=== PATIENT | male | born 1940 | race Caucasian/White ===

== ENCOUNTER 2021-12-19 09:25 | Inpatient (IN) ==
--- NOTE | 2021-12-19 09:32 | Emergency Department Note ---
Impression & Plan Weakness of extremity, Anemia, Hypocalcemia ED Provider Note NAME: VELMA ESTRADA AGE: 81 SEX: M : 1940 ARRIVES VIA: Ambulance INFORMANT: Patient, ED PROVIDER(S): Braulio Murcia MD Chief Complaint: HPI: I did receive a medical command call due to concern for wake-up stroke. The patient reportedly last known well at midnight when he went to bed but when he woke up around 8:00 the patient did have dense right-sided deficits and associated facial droop. EMS is reporting that patient does follow commands and is maintaining his airway but does appear to have facial droop does have difficulty with responding to extremity commands. No reported falls or trauma patient does take a baby aspirin but no other blood thinning medications. A code stroke was initiated while the patient was still in the field via EMS and was recommended to go right to CAT scan. I did speak with Dr. Robertson with [facility]. Will evaluate the patient. I did evaluate the patient myself and the patient does have diffuse bilateral upper and lower extremity weakness but is sensate throughout and his face arms chest abdomen and lower extremities. No prior history stroke or mini stroke. No recent falls or trauma per . The patient will occasionally drink a glass of wine but no recent alcohol use and no tobacco. Patient only complains of weakness but no sensory deficits. The patient denies any head neck back chest or abdominal pain. The patient does not complain of any extremity pain. No prior history of stroke or mini stroke. ROS: See HPI for pertinent positives and negatives. A total of 10 systems were reviewed and otherwise negative. Past medical history: See below Surgical history: See below Social history: See below Physical Exam: GENERAL: No apparent distress, wearing a mask EYE EXAM: Normal conjunctiva. PERRL, no anisocoria and EOM's grossly intact w/o pain. OROPHARYNX: Moist mucus membranes. Grossly normal dentition. NECK: Supple, trachea midline LUNGS: Clear to auscultation. Normal chest wall mechanics. HEART: NSR, no MRG. ABDOMEN: Abdomen soft, non-tender, normo-active bowel sounds, no masses, no rebound or guarding. BACK: No CVA TTP. SKIN: No rashes and no bruising. UPPER EXTREMITIES: Upper extremities are grossly normal. LOWER EXTREMITIES: Grossly normal, no edema. NEURO EXAM: Awake and alert x3, cranial nerves II through XII intact and no obvious facial droop normal speech, follows commands in the face, unable to move bilateral upper and lower extremities, sensory intact throughout face chest arms abdomen and extremities. Differential diagnoses: Infection, dehydration, metabolic abnormality, hypo/hyperglycemia, electrolyte disturbance, anemia, hypoxia, cardiac sources, intracerebral event, toxicologic, neurologic, as well as other pathologies. Course: Patient was seen and evaluated the bedside. Full history physical exam was performed. EKG interpreted by me Motion artifact noted junctional versus normal sinus, rate of 61, normal axis, no obvious ST elevations. Imaging Studies: See Below Cardiac monitoring: An order was placed for continuous cardiac monitoring. The monitor shows a rate of 62 with regular rhythm. MDM: Patient was seen due to concern for diffuse extremity weakness. The patient did have bladder completed along with CT head CT angiography head neck. CT head negative. The patient was evaluated by telestroke promptly. 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 No evidence of aneurysm rupture. I did discuss this with telestroke and they stated recommended MRI of the brain. Patient also did have an MRI of the C-spine ordered to r/o compression or other spinal cord pathology. Patient's blood work showed normal white count mild anemia with a hemoglobin of 12. Platelet count is unremarkable. Patient's kidney function is unremarkable with mild hyponatrem ia 133. Very mild hypocalcemia at 8.4. Urinalysis negative for blood or infection. COVID-negative given the patient's diffuse weakness I did speak the on-call hospitalist KANDIS Mckinnon and the patient was admitted by Dr. Denis pending results the patient's brain and C-spine MRI. I did convey the current findings and plan to the patient and patient's family at bedside who are in agreement plan of care. Upon reassessment prior to admission the patient did have improving motor function of his bilateral upper and lower extremities. Past Med/Surg History Medical History Chronic lower back pain Foot drop, right HTN (hypertension) Insomnia Surgical History History of back surgery History of knee replacement Family History Other GI bleed Social History Hx Alcohol Use: Yes Hx Substance Use: No Feels Safe at Home: Yes Allergies Allergies Allergy/AdvReac Type Severity Reaction Status Date / Time No Known Allergies Allergy Mild Unverified 12/19/21 13:24 Home Meds Home Medications Medication Instructions Recorded Confirmed Amitriptyline Hcl (Elavil Unknown #0 01/27/08 Dose) Amlodipine (Norvasc Unknown Dose) #0 01/27/08 Aspirin Enteric Coated (Ecotrin Or 81 mg PO DAILY #0 01/27/08 Generic *) Atorvastatin (Lipitor Unknown Dose) #0 01/27/08 amitriptyline 25 mg tablet 25 mg PO HS 12/19/21 12/19/21 amlodipine 5 mg-benazepril 40 mg 1 cap PO DAILY 12/19/21 12/19/21 capsule aspirin 81 mg capsule 81 mg PO DAILY 12/19/21 12/19/21 gabapentin 300 mg capsule 300 mg PO DIRECTED 12/19/21 12/19/21 levothyroxine 50 mcg tablet 50 mcg PO DAILY 12/19/21 12/19/21 Results & Data (ED) Vital Signs Vital Signs - 24 hr 12/19/21 09:35 12/19/21 09:43 12/19/21 09:49 Temperature 36.9 C Temperature Source Oral Pulse Rate 60 63 Pulse Rate [Left Apical] Pulse Rate from SpO2 Sensor 62 Pulse Rhythm Regular Pulse Rhythm [Left Apical] Pulse Strength [Left Apical] Respiratory Rate 12 14 Respiratory Effort / Characteristics Non-Labored Spontaneous Respiratory Depth Normal Respiratory Pattern Regular Blood Pressure 193/86 H Blood Pressure [Left Arm] Blood Pressure Mean 121 Blood Pressure Mean [Left Arm] Blood Pressure Position Lying Blood Pressure Position [Left Arm] Pulse Oximetry 96 96 95 Oxygen Delivery Method Room Air Room Air Oxygen Flow Rate 0 Sepsis Recent Fever Within 48 Hours No Sepsis New/Unexplained Change in Mental Status N/A Sepsis Action Taken by Nursing No Action Required 12/19/21 10:00 12/19/21 10:04 12/19/21 10:17 Temperature Temperature Source Pulse Rate 64 62 Pulse Rate [Left Apical] 62 Pulse Rate from SpO2 Sensor 66 62 Pulse Rhythm Pulse Rhythm [Left Apical] Regular Pulse Strength [Left Apical] Normal Respiratory Rate 17 16 19 Respiratory Effort / Characteristics Non-Labored Spontaneous Respiratory Depth Normal Respiratory Pattern Blood Pressure 190/96 H 178/89 H Blood Pressure [Left Arm] 190/96 H Blood Pressure Mean 127 118 Blood Pressure Mean [Left Arm] 127 Blood Pressure Position Blood Pressure Position [Left Arm] Lying Pulse Oximetry 96 97 97 Oxygen Delivery Method Room Air Oxygen Flow Rate Sepsis Recent Fever Within 48 Hours Sepsis New/Unexplained Change in Mental Status Sepsis Action Taken by Nursing 12/19/21 10:27 12/19/21 10:30 12/19/21 10:45 Temperature Temperature Source Pulse Rate 58 L 58 L 57 L Pulse Rate [Left Apical] Pulse Rate from SpO2 Sensor 58 L 59 L 56 L Pulse Rhythm Pulse Rhythm [Left Apical] Pulse Strength [Left Apical] Respiratory Rate 17 15 21 Respiratory Effort / Characteristics Respiratory Depth Respiratory Pattern Blood Pressure 180/87 H 166/88 H 176/79 H Blood Pressure [Left Arm] Blood Pressure Mean 118 114 111 Blood Pressure Mean [Left Arm] Blood Pressure Position Blood Pressure Position [Left Arm] Pulse Oximetry 96 97 96 Oxygen Delivery Method Oxygen Flow Rate Sepsis Recent Fever Within 48 Hours Sepsis New/Unexplained Change in Mental Status Sepsis Action Taken by Nursing 12/19/21 10:48 12/19/21 11:00 12/19/21 11:15 Temperature Temperature Source Pulse Rate 55 L 53 L Pulse Rate [Left Apical] 62 Pulse Rate from SpO2 Sensor 56 L 53 L Pulse Rhythm Pulse Rhythm [Left Apical] Pulse Strength [Left Apical] Respiratory Rate 16 18 21 Respiratory Effort / Characteristics Non-Labored Spontaneous Respiratory Depth Normal Respiratory Pattern Blood Pressure 168/79 H 140/68 Blood Pressure [Left Arm] 168/75 H Blood Pressure Mean 108 92 Blood Pressure Mean [Left Arm] 106 Blood Pressure Position Blood Pressure Position [Left Arm] Pulse Oximetry 98 97 97 Oxygen Delivery Method Room Air Oxygen Flow Rate Sepsis Recent Fever Within 48 Hours Sepsis New/Unexplained Change in Mental Status Sepsis Action Taken by Nursing 12/19/21 11:30 12/19/21 11:45 Temperature Temperature Source Pulse Rate 53 L 58 L Pulse Rate [Left Apical] Pulse Rate from SpO2 Sensor 53 L 58 L Pulse Rhythm Pulse Rhythm [Left Apical] Pulse Strength [Left Apical] Respiratory Rate 19 19 Respiratory Effort / Characteristics Respiratory Depth Respiratory Pattern Blood Pressure 146/69 H 173/82 H Blood Pressure [Left Arm] Blood Pressure Mean 94 112 Blood Pressure Mean [Left Arm] Blood Pressure Position Blood Pressure Position [Left Arm] Pulse Oximetry 96 95 Oxygen Delivery Method Room Air Room Air Oxygen Flow Rate Sepsis Recent Fever Within 48 Hours Sepsis New/Unexplained Change in Mental Status Sepsis Action Taken by [facility] Medications Current Medication List: was personally reviewed by me Laboratory Data Attestation: I reviewed the patient's lab results. Result diagrams: 12/19/21 09:43 12/19/21 09:43 Lab Results 12/19/21 12/19/21 12/19/21 Range/Units 09:27 09:43 09:43 WBC 8.82 (4.8-10.8) K/uL RBC 3.74 L (4.7-6.1) M/uL Hgb 12.3 L (14.0-18.0) g/dL Hct 34.8 L (42-52) % MCV 93.0 (80-100) fL MCH 32.9 (25-34) pg MCHC 35.3 (32-36) g/dL RDW Std Deviation 44.5 (36.4-46.3) fL RDW Coeff of Amparo 13.2 (11.5-14.5) % Plt Count 163 (130-400) K/uL MPV 9.2 (7.4-10.4) fL Immature Gran % (Auto) 0.3 % Neut % (Auto) 61.2 % Lymph % (Auto) 28.0 % Cedar % (Auto) 8.7 % Eos % (Auto) 1.6 % Baso % (Auto) 0.2 % Neut # (Auto) 5.39 (1.4-6.5) K/uL Lymph # (Auto) 2.47 (1.2-3.4) K/uL Cedar # (Auto) 0.77 H (0.11-0.59) K/uL Eos # (Auto) 0.14 (0-0.5) K/uL Baso # (Auto) 0.02 (0-0.2) K/uL Immature Gran # (Auto) 0.03 H (0.00-0.02) K/uL PT (9.0-12.0) Seconds INR (0.9-1.1) APTT (21.0-31.0) Seconds PTT Ratio Sodium (136-145) mmol/L Potassium (3.5-5.1) mmol/L Chloride (98-107) mmol/L Carbon Dioxide (21-32) mmol/L Anion Gap (3-11) BUN (6-23) mg/dl Creatinine (0.6-1.4) mg/dl Est Cr Clr Drug Dosing ml/min Est GFR ( Amer) ml/min Est GFR (Non-Af Amer) ml/min BUN/Creatinine Ratio (10-20) Glucose (70-99(Fasting)) mg/dl POC Glucose 120 H (70-99) mg/dl Calcium (8.5-10.1) mg/dl Magnesium (1.7-2.4) mg/dl Total Bilirubin (0.2-1.0) mg/dl AST (13-39) U/L ALT (7-52) U/L Alkaline Phosphatase (34-104) U/L Troponin I High Sens (0-20) pg/ml Total Protein (6.0-8.3) gm/dl Albumin (3.4-5.0) gm/dl Globulin (2.5-4.0) gm/dl Albumin/Globulin Ratio (0.9-2) Blood Type A Positive Antibody Screen NEGATIVE 12/19/21 12/19/21 Range/Units 09:43 09:43 WBC (4.8-10.8) K/uL RBC (4.7-6.1) M/uL Hgb (14.0-18.0) g/dL Hct (42-52) % MCV (80-100) fL MCH (25-34) pg MCHC (32-36) g/dL RDW Std Deviation (36.4-46.3) fL RDW Coeff of Amparo (11.5-14.5) % Plt Count (130-400) K/uL MPV (7.4-10.4) fL Immature Gran % (Auto) % Neut % (Auto) % Lymph % (Auto) % Cedar % (Auto) % Eos % (Auto) % Baso % (Auto) % Neut # (Auto) (1.4-6.5) K/uL Lymph # (Auto) (1.2-3.4) K/uL Cedar # (Auto) (0.11-0.59) K/uL Eos # (Auto) (0-0.5) K/uL Baso # (Auto) (0-0.2) K/uL Immature Gran # (Auto) (0.00-0.02) K/uL PT 10.9 (9.0-12.0) Seconds INR 1.0 (0.9-1.1) APTT 30.8 (21.0-31.0) Seconds PTT Ratio 1.1 Sodium 133 L (136-145) mmol/L Potassium 4.2 (3.5-5.1) mmol/L Chloride 104 (98-107) mmol/L Carbon Dioxide 25 (21-32) mmol/L Anion Gap 4 (3-11) BUN 23 (6-23) mg/dl Creatinine 1.03 (0.6-1.4) mg/dl Est Cr Clr Drug Dosing 70.3 ml/min Est GFR ( Amer) 79.1 ml/min Est GFR (Non-Af Amer) 68.3 ml/min BUN/Creatinine Ratio 22.3 H (10-20) Glucose 110 H (70-99(Fasting)) mg/dl POC Glucose (70-99) mg/dl Calcium 8.4 L (8.5-10.1) mg/dl Magnesium 1.8 (1.7-2.4) mg/dl Total Bilirubin 0.6 (0.2-1.0) mg/dl AST 8 L (13-39) U/L ALT 8 (7-52) U/L Alkaline Phosphatase 56 (34-104) U/L Troponin I High Sens 6.0 (0-20) pg/ml Total Protein 5.6 L (6.0-8.3) gm/dl Albumin 3.4 (3.4-5.0) gm/dl Globulin 2.2 L (2.5-4.0) gm/dl Albumin/Globulin Ratio 1.5 (0.9-2) Blood Type Antibody Screen Administered Medications Gabapentin (Gabapentin 300 Mg Cap) 300 mg PO DAILY@1500 BRADY Stop: 01/18/22 14:59 Last Admin: 12/19/21 16:16 Dose: 300 mg Documented by: [id number] Discontinued Medications Ioversol (Optiray 320 125ml) 119 ml IV ONCE ONE Stop: 12/19/21 09:42 Last Admin: 12/19/21 09:42 Dose: 119 ml Documented by: [id number] Imaging Data Radiologist's Impression: Head CT 12/19/21 09:15 CT head/brain wo con, CT angio neck with con, CT angio head w con CLINICAL HISTORY: 81 years-old Male with Stroke Like Symptoms. Acute strokelike symptoms TECHNIQUE: Multiple axial CT images of the head were obtained without contrast. CTA head and neck was also obtained following the intravenous administration of Optiray. All measurements were obtained according to NASCET criteria. 3-D coronal and sagittal MIPS were obtained from the axial data set. A dose lowering technique was utilized adhering to the principles of ALARA. COMPARISON: None. FINDINGS: CT HEAD: No acute intracranial hemorrhage, midline shift, intracranial mass, hydrocephalus, territorial ischemia or abnormal extra-axial collection. Age- related involutional changes. White matter hypodensities suggest chronic microvascular ischemic disease. Calcifications of the falx cerebri. The calvarium is intact. The mastoid air cells are generally clear. Minimal mucosal thickening of the paranasal sinuses. Unremarkable orbits and soft tissues. CTA HEAD AND NECK: Three-vessel morphology of the thoracic aortic arch. There is patency of the innominate and imaged subclavian arteries. The common and internal carotid arteries are widely patent. There is mild atherosclerosis of the distal internal carotid arteries without significant stenosis. There is a 3 mm saccular aneurysm noted involving the inferomedial aspect of the supraclinoid right internal carotid artery on image 104 of series 5. The middle and anterior cerebral ar teries are patent. Hypoplastic right A1 segment is likely developmental. Patent and codominant vertebral arteries. There is mild stenosis and tortuosity at the origin of the left vertebral artery. Mild stenosis of less than 50% involves the V2 segment of the right vertebral artery at the level of C4-C5 secondary to facet arthrosis and uncovertebral hypertrophy. The basilar and posterior cerebral arteries are patent. The cerebral venous sinuses are patent. Hypoplastic left transverse sinus. There is no abnormal intracranial enhancement. Subpleural bleb of the right lung apex. There is no pneumothorax. Hypodense 1.1 cm left-sided thyroid nodule. Multilevel degenerative changes of the cervical spine. IMPRESSION: 1. No acute intracranial abnormality. 2. 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 No evidence of aneurysm rupture. 3. Otherwise unremarkable CTA of the head and neck. ACT 112: Negative or not required by law. The above report was generated using voice recognition software. It may contain grammatical, syntax or spelling errors. Electronically signed by: Lux Arriola M.D. 12/19/2021 9:57 AM Head CTA 12/19/21 09:15 CT head/brain wo con, CT angio neck with con, CT angio head w con CLINICAL HISTORY: 81 years-old Male with Stroke Like Symptoms. Acute strokelike symptoms TECHNIQUE: Multiple axial CT images of the head were obtained without contrast. CTA head and neck was also obtained following the intravenous administration of Optiray. All measurements were obtained according to NASCET criteria. 3-D coronal and sagittal MIPS were obtained from the axial data set. A dose lowering technique was utilized adhering to the principles of ALARA. COMPARISON: None. FINDINGS: CT HEAD: No acute intracranial hemorrhage, midline shift, intracranial mass, hydrocephalus, territorial ischemia or abnormal extra-axial collection. Age- related involutional changes. White matter hypodensities suggest chronic microvascular ischemic disease. Calcifications of the falx cerebri. The calvarium is intact. The mastoid air cells are generally clear. Minimal mucosal thickening of the paranasal sinuses. Unremarkable orbits and soft tissues. CTA HEAD AND NECK: Three-vessel morphology of the thoracic aortic arch. There is patency of the innominate and imaged subclavian arteries. The common and internal carotid arteries are widely patent. There is mild atherosclerosis of the distal internal carotid arteries without significant stenosis. There is a 3 mm saccular aneurysm noted involving the inferomedial aspect of the supraclinoid right internal carotid artery on image 104 of series 5. The middle and anterior cerebral arteries are patent. Hypoplastic right A1 segment is likely developmental. Patent and codominant vertebral arteries. There is mild stenosis and tortuosity at the origin of the left vertebral artery. Mild stenosis of less than 50% involves the V2 segment of the right vertebral artery at the level of C4-C5 se condary to facet arthrosis and uncovertebral hypertrophy. The basilar and posterior cerebral arteries are patent. The cerebral venous sinuses are patent. Hypoplastic left transverse sinus. There is no abnormal intracranial enhancement. Subpleural bleb of the right lung apex. There is no pneumothorax. Hypodense 1.1 cm left-sided thyroid nodule. Multilevel degenerative changes of the cervical spine. IMPRESSION: 1. No acute intracranial abnormality. 2. 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 No evidence of aneurysm rupture. 3. Otherwise unremarkable CTA of the head and neck. ACT 112: Negative or not required by law. The above report was generated using voice recognition software. It may contain grammatical, syntax or spelling errors. Electronically signed by: Lux Arriola M.D. 12/19/2021 9:57 AM Neck CTA 12/19/21 09:15 CT head/brain wo con, CT angio neck with con, CT angio head w con CLINICAL HISTORY: 81 years-old Male with Stroke Like Symptoms. Acute strokelike symptoms TECHNIQUE: Multiple axial CT images of the head were obtained without contrast. CTA head and neck was also obtained following the intravenous administration of Optiray. All measurements were obtained according to NASCET criteria. 3-D coronal and sagittal MIPS were obtained from the axial data set. A dose lowering technique was utilized adhering to the principles of ALARA. COMPARISON: None. FINDINGS: CT HEAD: No acute intracranial hemorrhage, midline shift, intracranial mass, hydrocephalus, territorial ischemia or abnormal extra-axial collection. Age- related involutional changes. White matter hypodensities suggest chronic microvascular ischemic disease. Calcifications of the falx cerebri. The calvarium is intact. The mastoid air cells are generally clear. Minimal mucosal thickening of the paranasal sinuses. Unremarkable orbits and soft tissues. CTA HEAD AND NECK: Three-vessel morphology of the thoracic aortic arch. There is patency of the innominate and imaged subclavian arteries. The common and internal carotid arteries are widely patent. There is mild atherosclerosis of the distal internal carotid arteries without significant stenosis. There is a 3 mm saccular aneurysm noted involving the inferomedial aspect of the supraclinoid right internal carotid artery on image 104 of series 5. The middle and anterior cerebral arteries are patent. Hypoplastic right A1 segment is likely developmental. Patent and codominant vertebral arteries. There is mild stenosis and tortuosity at the origin of the left vertebral artery. Mild stenosis of less than 50% involves the V2 segment of the right vertebral artery at the level of C4-C5 secondary to facet arthrosis and uncovertebral hypertrophy. The basilar and posterior cerebral arteries are patent. The cerebral venous sinuses are patent. Hypoplastic left transverse sinus. There is no abnormal intracranial enhanceme nt. Subpleural bleb of the right lung apex. There is no pneumothorax. Hypodense 1.1 cm left-sided thyroid nodule. Multilevel degenerative changes of the cervical spine. IMPRESSION: 1. No acute intracranial abnormality. 2. 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 No evidence of aneurysm rupture. 3. Otherwise unremarkable CTA of the head and neck. ACT 112: Negative or not required by law. The above report was generated using voice recognition software. It may contain grammatical, syntax or spelling errors. Electronically signed by: Lux Arriola M.D. 12/19/2021 9:57 AM Brain MRI 12/19/21 10:22 MRI OF THE BRAIN WITHOUT IV CONTRAST CLINICAL HISTORY: Strokelike symptoms COMPARISON STUDY: CT of the brain dated 12/19/2021. TECHNIQUE: MRI of the brain was performed utilizing various T1 and T2-weighted sequences in the axial, sagittal, and coronal planes. IV contrast was not administered for this examination. FINDINGS: Brain parenchyma: There is age-related involutional change noting mild subcortical and periventricular microangiopathic disease. There is no hemorrhage or mass effect. There is no restricted diffusion to suggest acute ischemia. Reyna-white matter differentiation is preserved. No extra-axial fluid collection is seen. The cerebellar tonsils are normal in configuration. Ventricles, sulci, and cisterns: Prominent secondary to involutional change. Pituitary and sella: Unremarkable. Intracranial vasculature: Normal flow voids are maintained at the skull base. Orbits: The bony orbits are grossly intact. Orbital contents are normal in appearance. Sinuses and mastoids: There is trace mucosal thickening within the maxillary and ethmoid sinuses. The mastoid air cells are clear. Calvarium: Unremarkable. Cervical cord: Partially visualized cervical spinal cord is normal in morphology and signal intensity. IMPRESSION: No acute intracranial abnormality. ACT 112: Negative or not required by law. Electronically signed by: Demetrio Lorenzana M.D. 12/19/2021 1:22 PM Cervical Spine MRI 12/19/21 10:22 CLINICAL HISTORY: diffuse weakness TECHNIQUE: MRI of the cervical spine is performed utilizing various T1 and T2 sequences in the axial and sagittal planes. IV contrast was not administered for this examination. Comparison: None available at the time of this dictation. FINDINGS: The alignment is anatomical. C2-C3: Unremarkable. C3-C4: There is a large posterior disc bulge with severe canal stenosis, AP diameter 7 mm. Severe bilateral neuroforaminal stenosis is also seen. C4-C5: Large posterior disc bulge with ligamentum flavum hypertrophy, AP diameter 4.5 mm. There is bilateral severe neural foraminal stenosis. C5-C6: Small posterior disc bulge is seen with severe left and moderate right neural foraminal stenosis and moderate canal stenosis. C6-C7: Large posterior disc bulge is seen with moderate canal stenosis and moderate bilateral neuroforaminal stenosis. C7-T1: Unremarkable. The spinal ligaments are intact, without evidence of disruption or abnormal signal intensity. There is suggestion of spinal cord edema most prominent at the C4-C5 level. There is no evidence of an extradural, intradural, extramedullary or intramedullary lesion. Visualized soft tissues are normal. Visualized brain parenchyma is normal. 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 Findings are concerning for cord ischemia. ACT 112: Negative or not required by law. Electronically signed by: Alessandro Murillo M.D. 12/19/2021 1:45 PM Discharge Plan Visit Data Chief Complaint: Stroke Alert ED Provider: Braulio Murcia Discharge Problem: Weakness of extremity, Anemia, Hypocalcemia Patient Disposition: Admitted As Inpatient Discharge Instructions Interventions: ED Discharge Assessment Last Done: 12/19/21 14:35 Discharge Problem: Anemia Qualifiers: Anemia type: unspecified type Qualified Code(s): D64.9 - Anemia, unspecified
[2021-12-19] MEDS ORDERED: OPTIRAY 320 125ml IV ONE (09:41)
[2021-12-19 09:56] LABS: Basophils # (auto) 0.02 K/uL (0-0.2); Basophils % (auto) 0.2 %; Eosinophils # (auto) 0.14 K/uL (0-0.5); Eosinophils % (auto) 1.6 %; Hematocrit (blood only) 34.8 % (42-52); Hemoglobin 12.3 g/dL (14.0-18.0); Immature Granulocytes # (auto) 0.03 K/uL (0.00-0.02); Immature Granulocytes % (auto) 0.3 %; Lymphocytes # (auto) 2.47 K/uL (1.2-3.4); Mean Corpuscular Hemoglobin 32.9 pg (25-34); Mean Corpuscular Hgb Conc 35.3 g/dL (32-36); Mean Platelet Volume 9.2 fL (7.4-10.4); Monocytes # (auto) 0.77 K/uL (0.11-0.59); Monocytes % (auto) 8.7 %; Neutrophils # (auto) 5.39 K/uL (1.4-6.5); Neutrophils % (auto) 61.2 %; Platelet Count 163 K/uL (130-400); RDW Coefficient of Variation 13.2 % (11.5-14.5); RDW Standard Deviation 44.5 fL (36.4-46.3); Red Blood Count 3.74 M/uL (4.7-6.1); White Blood Count 8.82 K/uL (4.8-10.8)
--- NOTE | 2021-12-19 09:59 | CT Scan Report ---
CT head/brain wo con, CT angio neck with con, CT angio head w con CLINICAL HISTORY: 81 years-old Male with Stroke Like Symptoms. Acute strokelike symptoms TECHNIQUE: Multiple axial CT images of the head were obtained without contrast. CTA head and neck was also obtained following the intravenous administration of Optiray. All measurements were obtained ac cording to NASCET criteria. 3-D coronal and sagittal MIPS were obtained from the axial data set. A do se lowering technique was utilized adhering to the principles of ALARA. COMPARISON: None. FINDINGS: CT HEAD: No acute intracranial hemorrhage, midline shift, intracranial mass, hydrocephalus, territorial ischem ia or abnormal extra-axial collection. Age-related involutional changes. White matter hypodensities s uggest chronic microvascular ischemic disease. Calcifications of the falx cerebri. The calvarium is intact. The mastoid air cells are generally clear. Minimal mucosal thickening of th e paranasal sinuses. Unremarkable orbits and soft tissues. CTA HEAD AND NECK: Three-vessel morphology of the thoracic aortic arch. There is patency of the innominate and imaged jacobo bclavian arteries. The common and internal carotid arteries are widely patent. There is mild atherosc lerosis of the distal internal carotid arteries without significant stenosis. There is a 3 mm saccula r aneurysm noted involving the inferomedial aspect of the supraclinoid right internal carotid artery on image 104 of series 5. The middle and anterior cerebral arteries are patent. Hypoplastic right A1 segment is likely developmental. Patent and codominant vertebral arteries. There is mild stenosis and tortuosity at the origin of the left vertebral artery. Mild stenosis of less than 50% involves the V2 segment of the right vertebral artery at the level of C4-C5 secondary to facet arthrosis and uncovertebral hypertrophy. The basilar and posterior cerebral arteries are patent. The cerebral venous sinuses are patent. Hypoplastic left transverse sinus. There is no abnormal intracranial enhancement. Subpleural bleb of the right lung apex. There is no pneumothorax. Hypodense 1.1 cm left-sided thyroid nodule. Multilevel degenerative changes of the cervical spine. IMPRESSION: 1. No acute intracranial abnormality. 2. 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 No evidence of aneurysm rupture. 3. Otherwise unremarkable CTA of the head and neck. ACT 112: Negative or not required by law. The above report was generated using voice recognition software. It may contain grammatical, syntax o r spelling errors. Electronically signed by: Lux Arriola M.D. 12/19/2021 9:57 AM
[2021-12-19 10:09] LABS: Partial Thromboplastin Ratio 1.1; Partial Thromboplastin Time 30.8 Seconds (21.0-31.0); Prothrombin Time 10.9 Seconds (9.0-12.0)
[2021-12-19 10:15] LABS: Albumin Globulin Ratio 1.5 (0.9-2); Albumin Level 3.4 gm/dl (3.4-5.0); BUN Creatinine Ratio 22.3 (10-20); Bilirubin,Total 0.6 mg/dl (0.2-1.0); Calcium 8.4 mg/dl (8.5-10.1); Creatinine Clr Calc Pharmacy 70.3 ml/min; Est GFR (African American) 79.1 ml/min; Est GFR (Non-African American) 68.3 ml/min; Globulin 2.2 gm/dl (2.5-4.0); Magnesium 1.8 mg/dl (1.7-2.4); Potassium 4.2 mmol/L (3.5-5.1); Total Protein 5.6 gm/dl (6.0-8.3)
--- NOTE | 2021-12-19 12:05 | History & Physical Report ---
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 No evidence of aneurysm rupture -Unsure whether these symptoms are 2/2 CVA or possible Meds SE (isael amitriptyline) considering pt is having b/l symptoms -will get MRI brain, Echo and Neurology consult -NPO for now until bedside dysphagia test - will start pt on DAPT and Lipitor -A1C and Lipid panel AM -Lyme disease test today -PT/OT eval -pt initially had some urinary retention but able to void w/o any problem ---- will send UA HTN: -BP is elevated but pt did not take his home med -will continue home medication Insomnia and Chronic Lower back pain s/p back surgery: -for now will continue Amitriptyline and gabapentin Diet: NPO for now DVT PPx: Lovenox Code Status: Okay for CPR but no intubation Emergency Contact: : Laurence [phone] History of Present Illness Chief Complaint: extremity weakness Primary Care Provider: NO PCP Pt is a 81 y/o M with hx of HTN, Chronic R foot drop, Insomnia, L DDD s/p surgery, Chronic lower back pain came into the ER with acute onset of b/l arm and leg weakness with possible b/l facial droop (per symptoms started around 8 am today). Per and pt: pt was completely asymptomatic yesterday. Denied any recent URI symptoms, tick bite, rash, or GI symptoms. At bedside: per pt symptoms are improving. He is still having b/l extremity weakness. Denied any acute CP, SOB, RAMIREZ or Blurry vision. Denied any prior hx of CVA, OH, PAD or seizure. Pt and lives in [place], [place] Allergies Allergy/AdvReac Type Severity Reaction Status Date / Time No Known Allergies Allergy Unverified 12/19/21 11:49 Home Medications Medication Instructions Recorded Confirmed Type amitriptyline 25 mg tablet 25 mg PO HS 12/19/21 12/19/21 History amlodipine 5 mg-benazepril 40 mg 1 cap PO DAILY 12/19/21 12/19/21 History capsule aspirin 81 mg capsule 81 mg PO DAILY 12/19/21 12/19/21 History gabapentin 300 mg capsule 300 mg PO DIRECTED 12/19/21 12/19/21 History levothyroxine 50 mcg tablet 50 mcg PO DAILY 12/19/21 12/19/21 History Past Med/Surg History Medical History (Updated 12/19/21 @ 12:03 by Ingrid Huang MD) Chronic lower back pain Foot drop, right HTN (hypertension) Insomnia Surgical History (Updated 12/19/21 @ 12:00 by Ingrid Huang MD) History of back surgery History of knee replacement Family History (Updated 12/19/21 @ 12:00 by Ingrid Huang MD) Other GI bleed Social History Feels Safe at Home: Yes Review of Systems Review of Systems: At least 10 Review of systems were reviewed and all negative except as indicated in HPI Physical Exam Physical Exam: General:. NAD, well developed, well nourished, average body habitus HEENT:. Normocephalic and atraumatic, Normal Conjunctiva, EOMI, Sclera is non- icteric Lungs:. No signs of respiratory distress, CTA, no wheezing or crackles Heart:. Normal S1, S2, no murmur Abdominal:. ND, Soft, NT Neuro: CN II-XII intact, PERRLA, EOMI, no facial droop, pt had b/l UE and LE weakness: symmetrical, and only able to move the UE and LE against gravity slightly MSK:. No leg edema Psych:. AAOx3, normal affect Results & Data Results & Data ([facility]) Vital Signs (Past 12 Hours) Vital Signs Temp Pulse Pulse Resp BP BP Pulse Ox 12/19/21 10:48 62 16 168/75 H 98 12/19/21 10:04 62 16 190/96 H 97 12/19/21 09:49 95 12/19/21 09:35 36.9 C 60 12 193/86 H 96 Laboratory Results Short CBC 12/19/21 Range/Units 09:43 WBC 8.82 (4.8-10.8) K/uL Hgb 12.3 L (14.0-18.0) g/dL Hct 34.8 L (42-52) % Plt Count 163 (130-400) K/uL BMP 12/19/21 09:43 Sodium 133 L Potassium 4.2 Chloride 104 Carbon Dioxide 25 BUN 23 Creatinine 1.03 Glucose 110 H Calcium 8.4 L Liver Function 12/19/21 Range/Units 09:43 Total Bilirubin 0.6 (0.2-1.0) mg/dl AST 8 L (13-39) U/L ALT 8 (7-52) U/L Alkaline Phosphatase 56 (34-104) U/L Albumin 3.4 (3.4-5.0) gm/dl Diagnostic Findings Head CT 12/19/21 09:15 CT head/brain wo con, CT angio neck with con, CT angio head w con CLINICAL HISTORY: 81 years-old Male with Stroke Like Symptoms. Acute strokelike symptoms TECHNIQUE: Multiple axial CT images of the head were obtained without contrast. CTA head and neck was also obtained following the intravenous administration of Optiray. All measurements were obtained according to NASCET criteria. 3-D coronal and sagittal MIPS were obtained from the axial data set. A dose lowering technique was utilized adhering to the principles of ALARA. COMPARISON: None. FINDINGS: CT HEAD: No acute intracranial hemorrhage, midline shift, intracranial mass, hydrocephalus, territorial ischemia or abnormal extra-axial collection. Age- related involutional changes. White matter hypodensities suggest chronic microvascular ischemic disease. Calcifications of the falx cerebri. The calvarium is intact. The mastoid air cells are generally clear. Minimal mucosal thickening of the paranasal sinuses. Unremarkable orbits and soft tissues. CTA HEAD AND NECK: Three-vessel morphology of the thoracic aortic arch. There is patency of the innominate and imaged subclavian arteries. The common and internal carotid arteries are widely patent. There is mild atherosclerosis of the distal internal carotid arteries without significant stenosis. There is a 3 mm saccular aneurysm noted involving the inferomedial aspect of the supraclinoid right internal carotid artery on image 104 of series 5. The middle and anterior cerebral arteries are patent. Hypoplastic right A1 segment is likely developmental. Patent and codominant vertebral arteries. There is mild stenosis and tortuosity at the origin of the left vertebral artery. Mild stenosis of less than 50% involves the V2 segment of the right vertebral artery at the level of C4-C5 secondary to facet arthrosis and uncovertebral hypertrophy. The basilar and posterior cerebral arteries are patent. The cerebral venous sinuses are patent. Hypoplastic left transverse sinus. There is no abnormal intracranial enhancement. Subpleural bleb of the right lung apex. There is no pneumothorax. Hypodense 1.1 cm left-sided thyroid nodule. Multilevel degenerative changes of the cervical spine. IMPRESSION: 1. No acute intracranial abnormality. 2. 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 No evidence of aneurysm rupture. 3. Otherwise unremarkable CTA of the head and neck. ACT 112: Negative or not required by law. The above report was generated using voice recognition software. It may contain grammatical, syntax or spelling errors. Electronically signed by: Lux Arriola M.D. 12/19/2021 9:57 AM Head CTA 12/19/21 09:15 CT head/brain wo con, CT angio neck with con, CT angio head w con CLINICAL HISTORY: 81 years-old Male with Stroke Like Symptoms. Acute strokelike symptoms TECHNIQUE: Multiple axial CT images of the head were obtained without contrast. CTA head and neck was also obtained following the intravenous administration of Optiray. All measurements were obtained according to NASCET criteria. 3-D coronal and sagittal MIPS were obtained from the axial data set. A dose lowering technique was utilized adhering to the principles of ALARA. COMPARISON: None. FINDINGS: CT HEAD: No acute intracranial hemorrhage, midline shift, intracranial mass, hydrocephalus, territorial ischemia or abnormal extra-axial collection. Age- related involutional changes. White matter hypodensities suggest chronic microvascular ischemic disease. Calcifications of the falx cerebri. The calvarium is intact. The mastoid air cells are generally clear. Minimal mu cosal thickening of the paranasal sinuses. Unremarkable orbits and soft tissues. CTA HEAD AND NECK: Three-vessel morphology of the thoracic aortic arch. There is patency of the innominate and imaged subclavian arteries. The common and internal carotid arteries are widely patent. There is mild atherosclerosis of the distal internal carotid arteries without significant stenosis. There is a 3 mm saccular aneurysm noted involving the inferomedial aspect of the supraclinoid right internal carotid artery on image 104 of series 5. The middle and anterior cerebral arteries are patent. Hypoplastic right A1 segment is likely developmental. Patent and codominant vertebral arteries. There is mild stenosis and tortuosity at the origin of the left vertebral artery. Mild stenosis of less than 50% inv olves the V2 segment of the right vertebral artery at the level of C4-C5 secondary to facet arthrosis and uncovertebral hypertrophy. The basilar and posterior cerebral arteries are patent. The cerebral venous sinuses are patent. Hypoplastic left transverse sinus. There is no abnormal intracranial enhancement. Subpleural bleb of the right lung apex. There is no pneumothorax. Hypodense 1.1 cm left-sided thyroid nodule. Multilevel degenerative changes of the cervical spine. IMPRESSION: 1. No acute intracranial abnormality. 2. 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 No evidence of aneurysm rupture. 3. Otherwise unremarkable CTA of the head and neck. ACT 112: Negative or not required by law. The above report was generated using voice recognition software. It may contain grammatical, syntax or spelling errors. Electronically signed by: Lux Arriola M.D. 12/19/2021 9:57 AM Neck CTA 12/19/21 09:15 CT head/brain wo con, CT angio neck with con, CT angio head w con CLINICAL HISTORY: 81 years-old Male with Stroke Like Symptoms. Acute strokelike symptoms TECHNIQUE: Multiple axial CT images of the head were obtained without contrast. CTA head and neck was also obtained following the intravenous administration of Optiray. All measurements were obtained according to NASCET criteria. 3-D coronal and sagittal MIPS were obtained from the axial data set. A dose lowering technique was utilized adhering to the principles of ALARA. COMPARISON: None. FINDINGS: CT HEAD: No acute intracranial hemorrhage, midline shift, intracranial mass, hydrocephalus, territorial ischemia or abnormal extra-axial collection. Age- related involutional changes. White matter hypodensities suggest chronic microvascular ischemic disease. Calcifications of the falx cerebri. The calvarium is intact. The mastoid air cells are generally clear. Minimal mucosal thickening of the paranasal sinuses. Unremarkable orbits and soft tis sues. CTA HEAD AND NECK: Three-vessel morphology of the thoracic aortic arch. There is patency of the innominate and imaged subclavian arteries. The common and internal carotid arteries are widely patent. There is mild atherosclerosis of the distal internal carotid arteries without significant stenosis. There is a 3 mm saccular aneurysm noted involving the inferomedial aspect of the supraclinoid right internal carotid artery on image 104 of series 5. The middle and anterior cerebral arteries are patent. Hypoplastic right A1 segment is likely developmental. Patent and codominant vertebral arteries. There is mild stenosis and tortuosity at the origin of the left vertebral artery. Mild stenosis of less than 50% involves the V2 segment of the right vertebral artery at the level of C4-C5 se condary to facet arthrosis and uncovertebral hypertrophy. The basilar and posterior cerebral arteries are patent. The cerebral venous sinuses are patent. Hypoplastic left transverse sinus. There is no abnormal intracranial enhancement. Subpleural bleb of the right lung apex. There is no pneumothorax. Hypodense 1.1 cm left-sided thyroid nodule. Multilevel degenerative changes of the cervical spine.
--- NOTE | 2021-12-19 13:24 | Magnetic Resonance Report ---
MRI OF THE BRAIN WITHOUT IV CONTRAST CLINICAL HISTORY: Strokelike symptoms COMPARISON STUDY: CT of the brain dated 12/19/2021. TECHNIQUE: MRI of the brain was performed utilizing various T1 and T2-weighted sequences in the axial , sagittal, and coronal planes. IV contrast was not administered for this examination. FINDINGS: Brain parenchyma: There is age-related involutional change noting mild subcortical and periventricula r microangiopathic disease. There is no hemorrhage or mass effect. There is no restricted diffusion t o suggest acute ischemia. Reyna-white matter differentiation is preserved. No extra-axial fluid collec tion is seen. The cerebellar tonsils are normal in configuration. Ventricles, sulci, and cisterns: Prominent secondary to involutional change. Pituitary and sella: Unremarkable. Intracranial vasculature: Normal flow voids are maintained at the skull base. Orbits: The bony orbits are grossly intact. Orbital contents are normal in appearance. Sinuses and mastoids: There is trace mucosal thickening within the maxillary and ethmoid sinuses. The mastoid air cells are clear. Calvarium: Unremarkable. Cervical cord: Partially visualized cervical spinal cord is normal in morphology and signal intensity . IMPRESSION: No acute intracranial abnormality. ACT 112: Negative or not required by law. Electronically signed by: Demetrio Lorenzana M.D. 12/19/2021 1:22 PM
--- NOTE | 2021-12-19 13:47 | Magnetic Resonance Report ---
CLINICAL HISTORY: diffuse weakness TECHNIQUE: MRI of the cervical spine is performed utilizing various T1 and T2 sequences in the axial and sagittal planes. IV contrast was not administered for this examination. Comparison: None available at the time of this dictation. FINDINGS: The alignment is anatomical. C2-C3: Unremarkable. C3-C4: There is a large posterior disc bulge with severe canal stenosis, AP diameter 7 mm. Severe bertram ateral neuroforaminal stenosis is also seen. C4-C5: Large posterior disc bulge with ligamentum flavum hypertrophy, AP diameter 4.5 mm. There is bi lateral severe neural foraminal stenosis. C5-C6: Small posterior disc bulge is seen with severe left and moderate right neural foraminal stenos is and moderate canal stenosis. C6-C7: Large posterior disc bulge is seen with moderate canal stenosis and moderate bilateral neurofo raminal stenosis. C7-T1: Unremarkable. The spinal ligaments are intact, without evidence of disruption or abnormal signal intensity. There i s suggestion of spinal cord edema most prominent at the C4-C5 level. There is no evidence of an extra dural, intradural, extramedullary or intramedullary lesion. Visualized soft tissues are normal. Visua lized brain parenchyma is normal. 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 Findings are concerning for cord ischemia. ACT 112: Negative or not required by law. Electronically signed by: Alessandro Murillo M.D. 12/19/2021 1:45 PM
[2021-12-19 14:38] LABS: Appearance Urine Clear (Clear); Bilirubin Urine Negative (Negative); Blood Urine Negative (Negative); Color Urine Yellow; Glucose Urine UA Negative (Negative); Ketones Urine Negative (Negative); Leukocyte Esterase Urine Negative (Negative); Nitrite Urine Negative (Negative); Protein Urine Negative (Negative); Specific Gravity Urine 1.028 (1.000-1.030); Urobilinogen Urine Negative (Negative)
[2021-12-19] MEDS ORDERED: PHARMACIST DISCHARGE MED REC CONSULT PRN (15:19)
[2021-12-19] MEDS: GABAPENTIN 300 MG CAP PO SCH (16:16)
--- NOTE | 2021-12-19 16:17 | Neurology Consultation ---
Date of Consultation December 19, 2021 Assessment & Plan (1) Weakness of extremity: 1. bilateral UE/LE weakness, urinary retention- needs sphincter tone evaluation 2. MRI brain no acute findings- 3 mm saccular aneurysm will need follow up CTA in 6 months. 3. MRI c spine- extensive severe cord narrowing 4. urgent orthopedic consult needed 5. wait for orthopedic recs before PT/OT 6. fall precautions and keep NPO for now. hold aspirin 7. TTE if not already done (2) Cervical cord myelomalacia: 1. requesting orthopedic urgent consult Supervising Physician Co-Signing Physician Notes I have seen and discussed above patient with Dr Lilliana Kulkarni, neurology. See my dict note MD Quinton History of Present Illness Reason for Consultation: Diffuse extremity weakess x 1 day, urinary retenti Requesting Physician: Ingrid Huang MD Attending Physician: Ingrid Huang MD History of Present Illness Abe Caballero) is an 81 year old male with PMH- HTN, Chronic R foot drop, Insomnia, L DDD s/p surgery, Chronic lower back pain, peripheral neuropathy, very [place] presented to the [facility] 12/19/21 with acute onset of b/l arm and leg weakness with possible b/l facial droop (per symptoms started around 8 am today). He was complaining of neck pain but was no symptomatic yesterday. He is still having b/l extremity weakness but he no longer feels like he is paralysed. He is denying falls but his states he falls alot. they are here on vacation but actually live in [facility]. denies CP, SOB, abdominal pain, +bilateral UE/LE weakness, + bladder retension. Allergies Allergy/AdvReac Type Severity Reaction Status Date / Time No Known Allergies Allergy Mild Unverified 12/19/21 13:24 Home Medications Medication Instructions Recorded Confirmed Type Amitriptyline Hcl (Elavil Unknown #0 01/27/08 History Dose) Amlodipine (Norvasc Unknown Dose) #0 01/27/08 History Aspirin Enteric Coated (Ecotrin Or 81 mg PO DAILY #0 01/27/08 History Generic *) Atorvastatin (Lipitor Unknown Dose) #0 01/27/08 History amitriptyline 25 mg tablet 25 mg PO HS 12/19/21 12/19/21 History amlodipine 5 mg-benazepril 40 mg 1 cap PO DAILY 12/19/21 12/19/21 History capsule aspirin 81 mg capsule 81 mg PO DAILY 12/19/21 12/19/21 History gabapentin 300 mg capsule 300 mg PO DIRECTED 12/19/21 12/19/21 History levothyroxine 50 mcg tablet 50 mcg PO DAILY 12/19/21 12/19/21 History Patient History Medical History Chronic lower back pain Foot drop, right HTN (hypertension) Insomnia Surgical History History of back surgery History of knee replacement Family History Other GI bleed Social History Smoking Status: Former smoker Hx Alcohol Use: Yes Alcohol type: wine Hx Substance Use: No Preferred Language: Khmer Communication Ability: Effective K 9 Handler/ Deputy Required: No Beliefs That Will Affect Care: None Current Living Situation: Spouse Current Living Situation Comment: Assisted living, but not currently receiving services Other Information That Helps Us Care for You: No Feels Safe at Home: Yes Safety Concerns: Feels Safe At This Time Assistive Devices: Glasses, Hearing Aid - Bilateral and Walker Review of Systems Review of Systems: All systems reviewed & are unremarkable except as noted in HPI & below Physical Exam Physical Exam: Physical Exam: Constitutional: appearance nourished, healthy Ears, Nose, Mouth and Throat: mucous membranes moist, no injection and skin normal, eyes normal Cardiovascular: normal S-1 and S-2 and regular rate and rhythm Respiratory: clear to auscultation (CTA) and no rales, rhonchi or wheeze Musculoskeletal: no peripheral edema and decreased distal pulses Skin: no stigmata of neurocutaneous disease noted and normal and intact Eyes: extraocular muscles intact (EOMI) and pupils equal, round and reactive to light (PERRL) NEUROLOGIC EXAMINATION: Mental status: Alert and interactive Oriented to full date and location Oriented to person Speech fluent with no evidence of aphasia Cranial Nerves smile eye brow raise symmetric Reflexes: Deep tendon reflexes were decrease throughout, no ankle jerk worse on right than left, toes are neutral Sensory: loss of sensation right foot with vibration, cool, light touch, foot drop GT proprioception absent, left vibration, cool touch decreased but present Coordination: finger to nose intact heel to foot unable Gait/Stance: Posture lying in bed unable to check gait . Strength: hand teachers aide, intrinsics 4+/5 bilaterally, biceps triceps deltoids R/L 4+/5, hip flex bilaterally 4/5, plantar flex/ext R 0/5, L 4+/5 Results & Data ([facility]) Vital Signs (Past 12 Hours) Vital Signs Temp Pulse Pulse Pulse Resp BP BP 12/19/21 15:24 36.7 C 55 L 16 178/82 H 12/19/21 14:35 53 L 18 146/78 H 12/19/21 14:30 53 L 17 146/78 H 12/19/21 14:00 57 L 17 160/80 H 12/19/21 13:45 54 L 16 158/78 H 12/19/21 13:32 59 L 12 173/94 H 12/19/21 13:30 18 12/19/21 11:45 58 L 19 173/82 H 12/19/21 11:30 53 L 19 146/69 H 12/19/21 11:15 53 L 21 140/68 12/19/21 11:00 55 L 18 168/79 H 12/19/21 10:48 62 16 168/75 H 12/19/21 10:45 57 L 21 176/79 H 12/19/21 10:30 58 L 15 166/88 H 12/19/21 10:27 58 L 17 180/87 H 12/19/21 10:17 62 19 178/89 H 12/19/21 10:04 62 16 190/96 H 12/19/21 10:00 64 17 190/96 H 12/19/21 09:49 12/19/21 09:43 63 14 12/19/21 09:35 36.9 C 60 12 193/86 H Pulse Ox 12/19/21 15:24 96 12/19/21 14:35 95 12/19/21 14:30 12/19/21 14:00 95 12/19/21 13:45 96 12/19/21 13:32 97 12/19/21 13:30 12/19/21 11:45 95 12/19/21 11:30 96 12/19/21 11:15 97 12/19/21 11:00 97 12/19/21 10:48 98 12/19/21 10:45 96 12/19/21 10:30 97 12/19/21 10:27 96 12/19/21 10:17 97 12/19/21 10:04 97 12/19/21 10:00 96 12/19/21 09:49 95 12/19/21 09:43 96 12/19/21 09:35 96 Laboratory Results Abnormal lab results 12/19/21 12/19/21 12/19/21 Range/Units 09:27 09:43 09:43 RBC 3.74 L (4.7-6.1) M/uL Hgb 12.3 L (14.0-18.0) g/dL Hct 34.8 L (42-52) % Wise # (Auto) 0.77 H (0.11-0.59) K/uL Immature Gran # (Auto) 0.03 H (0.00-0.02) K/uL Sodium 133 L (136-145) mmol/L BUN/Creatinine Ratio 22.3 H (10-20) Glucose 110 H (70-99(Fasting)) mg/dl POC Glucose 120 H (70-99) mg/dl Calcium 8.4 L (8.5-10.1) mg/dl AST 8 L (13-39) U/L Total Protein 5.6 L (6.0-8.3) gm/dl Globulin 2.2 L (2.5-4.0) gm/dl Diagnostic Findings CT head/CTA head/neck-. No acute intracranial abnormality. 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 No evidence of aneurysm rup ture.. Otherwise unremarkable CTA of the head and neck. MRI brain-No acute intracranial abnormality. MRI c spine-Multilevel degenerative changes with severe canal and neural foraminal stenosis, most prominent at C4-C5 with spinal cord edema. Findings are concerning for cord ischemia. Upon further review, findings are more favored to represent chronic myelomalacia from severe disc disease rather than acute spinal cord ischemia.
--- NOTE | 2021-12-19 16:46 | Communication Note ---
Date of Service: December 19, 2021 Due to MRI C spine finding consulted stat Ortho -examined the pt at bedside: per pt his UE and LE weakness are improving -he also has significant lumbar spine stenosis per ---- needed surgery in the past but pt refused surgical intervention again when it was recommended by his surgeon recently -he was able to urinate -Did a digital rectal exam: normal rectal tone
--- NOTE | 2021-12-19 18:27 | Communication Note ---
Date of Service: December 19, 2021 Examined the pt at bedside: made him aware of the Decadron LUE: swelling near the cubital area surrounding a possible previous IV line --- no TTP or warmth to touch - likely from a infiltrated line -however will get Doppler Will do condom cath - pt does not want straight cath
[2021-12-19] MEDS: dexAMETHasone 8 MG in SYRINGE 0 ML IV SCH (20:02)
[2021-12-19] MEDS: AMITRIPTYLINE HCL 25 MG TAB PO SCH (20:59)
[2021-12-19] MEDS: GABAPENTIN 600 MG TAB PO SCH (21:00)
[2021-12-19] MEDS ORDERED: ENOXAPARIN INJ 40 MG/0.4 ML SYR SQ SCH (21:00)
--- NOTE | 2021-12-19 21:27 | Consultation Report ---
DATE OF SERVICE: 12/19/2021 Please see Lilliana Ulloa's note. We had seen and discussed the patient. As well, we have both communicated to Dr. Huang. HISTORY OF PRESENT ILLNESS: The patient is an 81-year-old male who woke up suddenly this morning and indicated he could not move his extremities. His indicates he spoke in a soft voice and perhaps had bifacial weakness. There was no headache. There was no double vision, facial anesthesia, or difficulty with swallowing. The patient denied any new sensory symptoms. He has a chronic right foot drop, which they are unsure whether it is related to his known peripheral neuropathy or related to lumbar issues. There were no new sensory symptoms. There is no neck pain, no Lhermitte's phenomenon and no back pain. He has been otherwise well. He has fallen about 10 times over the last year and ambulates with a walker. About 6 weeks ago, he and his had a flu-like illness, but tested negative for COVID. He has been gradually improving in terms of some mild generalized weakness since then. He denies any difficulty with bowel or bladder. He indicates he is having difficulty emptying his bladder at our facility due to not being able to stand up. He has no prior history of the same. He has no history of stroke. No history of cancer. I have reviewed his MRI of the brain, which appears noncontributory and his MRI of the cervical spine. I have shown those images to the patient and his family. There is severe cord compression at C4-C5 with the AP diameter of the central canal being 4.5 mm. There is encephalomalacia in the cord. PHYSICAL EXAMINATION: On examination, the patient is awake, alert, and oriented x3. On general examination, there were no carotid bruits, no heart murmurs. Heart is regular rate and rhythm. There is no spinal tenderness. Pupils are equal, round, and reactive to light. Optic nerves are difficult to visualize. There are normal arriaza, motility, facial sensation, facial symmetry. Tongue is midline. There is no tongue weakness. No nasality of speech. No fatigability of eye closure. No neck flexor/extensor fatigue or weakness. Gross inspection of the musculature reveals some atrophy below the level of the knees with a right foot drop apparently chronic due to atrophy. Upper extremity strength is about 3+ to 4 with normal tone. Tone may be mildly increased in the lowers. Lower extremity strength is about 3+ as well, although functionally it is somewhat better. This is with the exception of the right TA, which is less than antigravity. The peroneus longus and tibialis posterior are similarly weak and the gastroc is probably closer to 4. His reflexes are brisk at the triceps. There is no increase in pectoralis major reflex. There is no increase in superficial or deep abdominal reflex. Knee jerks are brisk. There is a right crossed adductor. Ankle jerks are absent. There is no clonus and toes are downgoing. There is decreased light touch and temperature in the right arm and right leg. There is decreased vibration in the right leg. There is approximately a knee level to temperature. No spinal level is noted. Buttock sensation to light touch is intact. IMPRESSION AND PLAN: This patient gives a history of sudden quadriparesis without pain or new sensory symptoms on a background of 12 months of increased falls. gives a history of perhaps bifacial weakness or change in speech, but that is somewhat unclear to this examiner. For the most part, the patient's deficit is one of quadriparesis with scattered brisk reflexes. His sensory examination does not entirely fit a typical distribution of a cord lesion. I believe the patient is symptomatic for cord compression. I cannot explain why he is somewhat improved since this morning or why his perception is that the symptoms came on suddenly. Recommend urgent orthopedic spine consultation. I have communicated that with Dr. Huang. Recommend intravenous steroids. Blood sugar will need to be monitored carefully. I spoke to the patient's family in some detail talking about the need for a fairly urgent evaluation. He certainly can be urgently transferred to a tertiary care center if that is their desire. I think an acute process such as an acute inflammatory demyelinating polyneuropathy would be unusual given the relative sudden onset, some improvement, lack of new sensory symptoms such as paresthesias, lack of back pain. Similarly, doubt an acute myasthenic type picture given the patient's improvement as the day goes on. Similarly, I see no distribution suggestive that this is a myopathic process. We will follow with you. Job ID: [id number] [facility]
--- NOTE | 2021-12-19 21:28 | Progress Notes ---
ADDENDUM CTA of the head suggests a 3 mm saccular aneurysm of the supraclinoid segment of the right ICA. No e vidence of aneurysm rupture. This aneurysm appears to be asymptomatic. Recommend vascular neurosurg mike consultation on an elective basis. Job ID: [id number]
[2021-12-20] MEDS: dexAMETHasone 8 MG in SYRINGE 0 ML IV SCH ×2 (03:59→13:15)
[2021-12-20] MEDS: LEVOTHYROXINE SODIUM 50 MCG TABLET PO SCH (06:01)
--- NOTE | 2021-12-20 06:36 | Electrocardiogram Report ---
Test Reason : Blood Pressure : / mmHG Vent. Rate : 061 BPM Atrial Rate : 061 BPM P-R Int : 216 ms QRS Dur : 088 ms QT Int : 412 ms P-R-T Axes : 000 -42 018 degrees QTc Int : 414 ms Poor data quality, interpretation may be adversely affected Possible Sinus rhythm with 1st degree A-V block Left axis deviation Inferior infarct , age undetermined Incomplete right bundle branch block Abnormal ECG No previous ECGs available Confirmed by Rony Allen ([id number]) on 12/20/2021 6:35:43 AM Referred By: REFERRED SELF Confirmed By:Rony Allen
--- NOTE | 2021-12-20 06:58 | Ultrasound Report ---
ULTRASOUND LEFT UPPER EXTREMITY VENOUS CLINICAL HISTORY: Left arm swelling. COMPARISON STUDY: No priors. TECHNIQUE: Real-time, grayscale, and color Doppler sonography of the deep veins of the left upper ext remity is performed. Compression and augmentation were utilized. FINDINGS: There is no sonographic evidence of deep venous thrombosis identified in the left upper ext remity. The left internal jugular, axillary, and brachial veins are patent and normally compressible. Normal venous waveforms and augmentation are seen within the left subclavian vein. The cephalic and basilic veins are clear. The visualized radial and ulnar veins are patent. Soft tissue edema is noted . IMPRESSION: There is no sonographic evidence of deep venous thrombosis identified in the left upper e xtremity. ACT 112: Negative or not required by law. Electronically signed by: Demetrio Lorenzana M.D. 12/20/2021 6:57 AM
[2021-12-20 07:31] LABS: Hemoglobin 14.7 g/dL (14.0-18.0); Immature Granulocytes # (auto) 0.03 K/uL (0.00-0.02); Immature Granulocytes % (auto) 0.3 %; Lymphocytes # (auto) 1.21 K/uL (1.2-3.4); Lymphocytes % (auto) 13.2 %; Mean Corpuscular Hgb Conc 35.9 g/dL (32-36); Mean Corpuscular Volume 92.1 fL (80-100); Mean Platelet Volume 9.5 fL (7.4-10.4); Monocytes # (auto) 0.09 K/uL (0.11-0.59); Neutrophils # (auto) 7.84 K/uL (1.4-6.5); Neutrophils % (auto) 85.5 %; Platelet Count 189 K/uL (130-400); RDW Coefficient of Variation 13.1 % (11.5-14.5); RDW Standard Deviation 43.7 fL (36.4-46.3); Red Blood Count 4.45 M/uL (4.7-6.1); White Blood Count 9.17 K/uL (4.8-10.8)
[2021-12-20 07:49] LABS: BUN Creatinine Ratio 19.7 (10-20); Calcium 9.5 mg/dl (8.5-10.1); Chol HDL Ratio 4.7 (0-5); Creatinine Clr Calc Pharmacy 61.9 ml/min; Est GFR (African American) 67.8 ml/min; Est GFR (Non-African American) 58.5 ml/min; Potassium 4.4 mmol/L (3.5-5.1)
--- NOTE | 2021-12-20 08:10 | Orthopedic Consultation ---
Date of Consultation December 20, 2021 Assessment & Plan (1) Cervical cord myelomalacia: Assessment cervical spinal stenosis with myelopathy. Plan had discussion with this patient this morning regarding his imaging and clinical presentation. I recommend urgent anterior cervical decompression and fusion most likely requiring a C4 corpectomy for adequate canal decompression and stabilization. He is from the [facility] and is requesting transfer to the hospital closer to his home most [facility]. This of course reasonable. I did state that if he is unable to be transferred I would not be comfortable waiting a prolonged period of time before addressing this surgically. Patient understands and agrees. I have made him n.p.o. History of Present Illness Reason for Consultation: Upper and lower extremity weakness Attending Physician: Edward Brown MD History of Present Illness This is an 81-year-old male that states that he woke up yesterday morning with the perception of paralysis involving his upper and lower extremities. He was taken to emergency room. His symptoms steadily improved throughout the day as he underwent an extensive work-up to rule out stroke. MRI of the cervical spine was obtained demonstrating evidence of severe spinal stenosis and myelomalacia. This morning he states he has return to function to his arms and legs. States he was able to stand earlier this morning with the assistance of his nurses. He was unable to urinate and subsequently required catheterization. He denies gross numbness and tingling in lower extremities at this time and feels his strength is improving. Allergies Allergy/AdvReac Type Severity Reaction Status Date / Time No Known Allergies Allergy Mild Unverified 12/19/21 13:24 Home Medications Medication Instructions Recorded Confirmed Type Amitriptyline Hcl (Elavil Unknown #0 01/27/08 History Dose) Amlodipine (Norvasc Unknown Dose) #0 01/27/08 History Aspirin Enteric Coated (Ecotrin Or 81 mg PO DAILY #0 01/27/08 History Generic *) Atorvastatin (Lipitor Unknown Dose) #0 01/27/08 History amitriptyline 25 mg tablet 25 mg PO HS 12/19/21 12/19/21 History amlodipine 5 mg-benazepril 40 mg 1 cap PO DAILY 12/19/21 12/19/21 History capsule aspirin 81 mg capsule 81 mg PO DAILY 12/19/21 12/19/21 History gabapentin 300 mg capsule 300 mg PO DIRECTED 12/19/21 12/19/21 History levothyroxine 50 mcg tablet 50 mcg PO DAILY 12/19/21 12/19/21 History Patient History Medical History Chronic lower back pain Foot drop, right HTN (hypertension) Insomnia Surgical History History of back surgery History of knee replacement Family History Other GI bleed Social History Smoking Status: Former smoker Hx Alcohol Use: Yes Alcohol type: wine Hx Substance Use: No Preferred Language: Lao Communication Ability: Effective Hvac Sales Engineer Required: No Beliefs That Will Affect Care: None Current Living Situation: Spouse Current Living Situation Comment: Assisted living, but not currently receiving services Other Information That Helps Us Care for You: No Feels Safe at Home: Yes Safety Concerns: Feels Safe At This Time Assistive Devices: Glasses, Hearing Aid - Bilateral and Walker Physical Exam Physical Exam: On exam he is supine in bed. He demonstrates reasonable for +5 bilateral biceps triceps grasp. He is a positive Chun sign bilaterally. He has reasonable plantar flexion dorsiflexion. I have not got him out of bed at this time yet. Results & Data ([facility]) Vital Signs (Past 12 Hours) Vital Signs Temp Pulse Pulse Resp BP Pulse Ox 12/20/21 07:22 90 12/20/21 03:07 36.6 C 58 L 18 126/74 95 12/20/21 00:00 64 12/19/21 23:42 36.6 C 60 18 124/71 93
[2021-12-20] MEDS ORDERED: ACETAMINOPHEN 325 MG TAB PO PRN (08:19)
[2021-12-20] MEDS ORDERED: CLOPIDOGREL BISULFATE 75 MG TAB PO SCH (09:00)
[2021-12-20] MEDS ORDERED: ASPIRIN 81 MG ECTAB PO SCH (09:00)
[2021-12-20] MEDS: amLODIPine BESYLATE 5 MG TAB PO SCH (09:12)
[2021-12-20 09:13] LABS: Estimated Average Glucose 117 mg/dl; Hemoglobin A1C 5.7 % (4.5-5.6)
[2021-12-20] MEDS: ENALAPRIL MALEATE 10 MG TAB PO SCH (09:13)
[2021-12-20] MEDS: ATORVASTATIN 40 MG TAB PO SCH (09:13)
[2021-12-20] MEDS: GABAPENTIN 600 MG TAB PO SCH ×2 (09:13→21:23)
[2021-12-20] MEDS ORDERED: PERFLUTREN LIPID MICROSPHERE (DEFINITY) IV ONE (10:38)
[2021-12-20 11:49] LABS: Lyme Ab IgG w/WB Rflx Negative (Negative); Lyme Ab IgM w/WB Rflx Negative (Negative)
--- NOTE | 2021-12-20 14:36 | Hospitalist Progress Note ---
Date of Service December 20, 2021 Assessment & Plan (1) HTN (hypertension): (2) Insomnia: (3) Chronic lower back pain: (4) Weakness of extremity: Plan: 81year old male who presented to the ED 12/19 with acute onset bilateral arm and leg weakness, symptoms started around 8 am on 12/19. Stroke work up was negative but showed severe canal and neural foraminal stenosis, most prominent at C4-C5 with spinal cord edema concerning for cord ischemia. He was started on decadron with improvement. He was seen by orthopedic surgery and recommended urgent ADCF. He is from [facility] but was here on vacation. Cervical spine MRI 12/19- Multilevel degenerative changes with severe canal and neural foraminal stenosis, most prominent at C4-C5 with spinal cord edema. Findings are concerning for cord ischemia. 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 CT head and MRI brain with no acute abnormality CTA head/neck 1. No acute intracranial abnormality. 2. 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 No evidence of aneurysm rupture. 3. Otherwise unremarkable CTA of the head and neck. 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 Urinary retention and now on farfan. - Seen by Dr Tiwari and recommended urgent ADCF most likely requiring C4 corpectomy for adequate canal decompression adn stabilization- however patient and family opted to be transferred to [facility] as they are from [place] and his daughter Mariela works there at [employer]. I spoke with neurosurgeon Dr Isaias Valdovinos from [facility] who accepted the patient for transfer however he recommended that the surgery not be delayed and rather done here as there is no bed available and there are multiple emergency cases already scheduled- so the surgery will not be done for the next 4-5 days there even if transferred. The CT and MRI images were sent to [facility] system and were reviewed by Dr Valdovinos and I was told he would like to speak to Dr Tiwari. I have texted and paged Dr Tiwari to make him aware- awaiting response. patient is made npo per orthopedics, will start gentle ivf. No need for stroke protocol. - Further management per surgical team Acute urinary retention- from above- continue farfan. HTN: continue vasotec Hypothyroidism- on synthroid Insomnia and Chronic Lower back pain s/p back surgery: Continue Amitriptyline and gabapentin DVT PPx:sc Lovenox Dispo: needs urgent ADCF per ortho- here vs transfer to [facility] Updated daughter Mariela over the phone multiple times today. Admission and Anticipated Discharge Date Admission Date: December 19, 2021 Subjective He feels improved. His strength is back. He was unable to void and was placed on farfan this morning. He was seen by Dr Tiwari this morning who recommended urgent surgery but he wanted to get the surgery done at [facility] as he is from the [facility] and his daughter works there at [employer]. He was wondering if he could eat as the plan for surgery is uncertain. Physical Exam Physical Exam: General: Lying comfortably in bed, not in distress, on room air HEENT: EOMI, ZACKARY, MMM Chest: Clear breath sounds bilaterally, no wheezes or crackles CVS: Regular rate and rhythm, normal heart sounds, no murmur Abdomen: Soft, non tender, not distended, normal bowel sounds Neuro: Awake, alert, oriented, conversing well, non focal. Strength 5/5 on all extremities, sensation intact Extremities: No cyanosis, clubbing or edema Farfan with donavan urine Results & Data Results & Data ([facility]) Vital Signs (Past 12 Hours) Vital Signs Temp Pulse Pulse Pulse Resp BP Pulse Ox 12/20/21 13:27 36.6 C 75 14 148/88 H 95 12/20/21 10:00 36.5 C 81 14 157/97 H 94 12/20/21 08:00 36.5 C 80 16 178/100 H 96 12/20/21 07:22 90 12/20/21 03:07 36.6 C 58 L 18 126/74 95 Laboratory Results Short CBC 12/20/21 Range/Units 07:08 WBC 9.17 (4.8-10.8) K/uL Hgb 14.7 (14.0-18.0) g/dL Hct 41.0 L (42-52) % Plt Count 189 (130-400) K/uL BMP 12/20/21 07:08 Sodium 133 L Potassium 4.4 Chloride 100 Carbon Dioxide 24 BUN 23 Creatinine 1.17 Glucose 171 H Calcium 9.5 Urine 12/19/21 Range/Units 13:30 Urine Color Yellow Urine Appearance Clear (Clear) Urine pH 7.0 (4.5-7.5) Ur Specific [place] 1.028 (1.000-1.030) Urine Protein Negative (Negative) Urine Glucose (UA) Negative (Negative) Medications Administered Current Inpatient Medications Acetaminophen (Acetaminophen 325 Mg Tab) 650 mg PO Q4H PRN PRN Reason: pain Stop: 01/19/22 08:18 Amitriptyline HCl (Amitriptyline Hcl 25 Mg Tab) 25 mg PO HS BRADY Stop: 01/18/22 20:59 Last Admin: 12/19/21 20:59 Dose: 25 mg Documented by: Amlodipine Besylate (Amlodipine Besylate 5 Mg Tab) 5 mg PO DAILY [facility] Stop: 01/19/22 08:59 Last Admin: 12/20/21 09:12 Dose: 5 mg Documented by: Aspirin (Aspirin 81 Mg Ectab) 81 mg PO DAILY BRADY Stop: 01/19/22 08:59 Last Admin: 12/20/21 09:13 Dose: 81 mg Documented by: Atorvastatin Calcium (Atorvastatin 40 Mg Tab) 40 mg PO QAM [facility] Stop: 01/19/22 08:59 Last Admin: 12/20/21 09:13 Dose: 40 mg Documented by: Clopidogrel Bisulfate (Clopidogrel Bisulfate 75 Mg Tab) 75 mg PO QAM [facility] Stop: 01/19/22 08:59 Last Admin: 12/20/21 09:13 Dose: 75 mg Documented by: Enalapril Maleate (Enalapril Maleate 10 Mg Tab) 40 mg PO DAILY [facility] Stop: 01/19/22 08:59 Last Admin: 12/20/21 09:13 Dose: 40 mg Documented by: Enoxaparin Sodium (Enoxaparin Inj 40 Mg/0.4 Ml Syr) 40 mg SQ Q24H BRADY Stop: 01/18/22 20:59 Last Admin: 12/19/21 21:00 Dose: 40 mg Documented by: Gabapentin (Gabapentin 600 Mg Tab) 600 mg PO BID BRADY Stop: 01/18/22 20:59 Last Admin: 12/20/21 09:13 Dose: 600 mg Documented by: Gabapentin (Gabapentin 300 Mg Cap) 300 mg PO DAILY@1500 [facility] Stop: 01/18/22 14:59 Last Admin: 12/19/21 16:16 Dose: 300 mg Documented by: Dexamethasone 8 mg/ Syringe 2 mls @ 1 mls/min IV Q8H [facility] Stop: 12/20/21 19:59 Last Admin: 12/20/21 13:15 Dose: 1 mls/min Documented by: Sodium Chloride (Nss 1000ml) 1,000 mls @ 80 mls/hr IV .[id number] [facility] Stop: 01/19/22 14:44 Levothyroxine Sodium (Levothyroxine Sodium 50 Mcg Tablet) 50 mcg PO DAILYBB [facility] Stop: 01/19/22 06:29 Last Admin: 12/20/21 06:01 Dose: 50 mcg Documented by: Miscellaneous Information (Pharmacist Discharge Med Rec Consult) 1 ea N/A UD PRN PRN Reason: Consult Stop: 01/18/22 15:18
[2021-12-20] MEDS: GABAPENTIN 300 MG CAP PO SCH (15:30)
[2021-12-20] MEDS: SODIUM CHLORIDE 0.9% 1000ML 1,000 ML IV SCH (15:30)
--- NOTE | 2021-12-20 15:51 | Neurology Progress Note ---
Date of Service December 20, 2021 Assessment & Plan (1) Weakness of extremity: Plan: 1. bilateral UE/LE weakness, urinary retention- needs sphincter tone evaluation 2. MRI brain no acute findings- 3 mm saccular aneurysm will need follow up CTA in 6 months. 3. MRI c spine- extensive severe cord narrowing 4. urgent orthopedic consult needed 5. orthopedic planning for surgery 6. fall precautions and keep NPO for now. hold aspirin 7. TTE 60-65% EF no ASD 8. will need physical therapy after discharge- the would like to go back to the [facility] Admission and Anticipated Discharge Date Admission Date: December 19, 2021 Supervising Physician Co-Signing Physician Notes I have seen and discussed above patient with Dr Lilliana Kulkarni, neurology patient seen and examined. He feels improved today. No new neurologic symptoms other than some urinary retention. On exam he is awake and alert speech and language are normal upper extremity strength about 4 right lower proximally 3+ distally for with the exception of right foot drop. Brisk knee jerks with the bilateral crossed adductors absent ankle jerks downgoing toes no clonus Compressive cervical myelopathy patient is mildly improved on Decadron. Patient is to undergo surgery tomorrow. 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 We will sign off at this point. Lilliana Kulkarni MD Martín Caballero) is an 81 year old male with PMH- HTN, Chronic R foot drop, Insomnia, L DDD s/p surgery, Chronic lower back pain, peripheral neuropathy, ve ry [place] presented to the [facility] 12/19/21 with acute onset of b/l arm and leg weakness with possible b/l facial droop (per symptoms started around 8 am today). He was complaining of neck pain but was no symptomatic yesterday. He is still having b/l extremity weakness but he no longer feels like he is paralysed. He is denying falls but his states he falls alot. they are here on vacation but actually live in [facility]. denies CP, SOB, abdominal pain, +bilateral UE/LE weakness, + bladder retention. His daughters are in the room and are anxious to speak to Dr Tiwari. He has decided to stay and have surgery. He feels he is improved from yesterday after having 3 rounds of steroids. Review of Systems Review of Systems: All systems reviewed & are unremarkable except as noted in HPI & below Physical Exam Physical Exam: Physical Exam: Constitutional: appearance over nourished, healthy Ears, Nose, Mouth and Throat: mucous membranes moist, no injection and skin normal, eyes normal Cardiovascular: normal S-1 and S-2 and regular rate and rhythm Respiratory: clear to auscultation (CTA) and no rales, ronchi or wheeze Musculoskeletal: no peripheral edema and good distal pulses, edema in left upper arm Skin: no stigmata of neurocutaneous disease noted and normal and intact Eyes: extraocular muscles intact (EOMI) and pupils equal, round and reactive to light (PERRL) NEUROLOGIC EXAMINATION: Mental status: Alert and interactive Oriented to full date and location Oriented to person Speech fluent with no evidence of aphasia Cranial Nerves smile eye brow raise symmetric Reflexes: Deep tendon reflexes decreased throughout right foot drop no clonus, toes are neutral Sensory: decreased to vibration cool touch right intact at GT on left GT proprioception absent Coordination: able to raise both arms in the air Gait/Stance: Posture lying in bed Motor: Negative for pronator drift of out stretched arms with eyes closed. Strength: hand regional facilities specialist biceps triceps 4+/5 Results & Data ([facility]) Vital Signs (Past 12 Hours) Vital Signs Temp Pulse Pulse Resp BP BP Pulse Ox 12/20/21 14:38 36.5 C 86 20 147/84 H 94 12/20/21 13:27 36.6 C 75 14 148/88 H 95 12/20/21 10:00 36.5 C 81 14 157/97 H 94 12/20/21 08:00 36.5 C 80 16 178/100 H 96 12/20/21 07:22 90 Laboratory Results Abnormal lab results 12/20/21 12/20/21 12/20/21 Range/Units 07:08 07:08 07:08 RBC 4.45 L (4.7-6.1) M/uL Hct 41.0 L (42-52) % Neut # (Auto) 7.84 H (1.4-6.5) K/uL [place] # (Auto) 0.09 L (0.11-0.59) K/uL Immature Gran # (Auto) 0.03 H (0.00-0.02) K/uL Sodium 133 L (136-145) mmol/L Glucose 171 H (70-99(Fasting)) mg/dl Hemoglobin A1c 5.7 H (4.5-5.6) % Diagnostic Findings left UE doppler-There is no sonographic evidence of deep venous thrombosis identified in the left upper extremity.
--- NOTE | 2021-12-20 19:44 | Anesthesiology Consultation ---
Date of Service December 20, 2021 Assessment & Plan Chart Review Chart Review: Acceptable Risk for Surgery and Patient NOT seen in Pre Admission Testing Consults Requested none ASA ASA3 Proposed Anesthesia Anesthesia Type: General History Surgery Operation Date: 12/21/21 08:15 Proposed Procedures p C4 Anterior Cervical Corpectomy - Maxim Tiwari DO Height/Weight Height: 6 ft 1 in Weight: 97.3 kg Allergies Allergy/AdvReac Type Severity Reaction Status Date / Time No Known Allergies Allergy Mild Unverified 12/19/21 13:24 Medications Home Medications Medication Instructions Recorded Confirmed Last Taken Amitriptyline Hcl (Elavil Unknown #0 01/27/08 Unknown Dose) Amlodipine (Norvasc Unknown Dose) #0 01/27/08 Unknown Aspirin Enteric Coated (Ecotrin Or 81 mg PO DAILY #0 01/27/08 Unknown Generic *) Atorvastatin (Lipitor Unknown Dose) #0 01/27/08 Unknown amitriptyline 25 mg tablet 25 mg PO HS 12/19/21 12/19/21 Unknown amlodipine 5 mg-benazepril 40 mg 1 cap PO DAILY 12/19/21 12/19/21 Unknown capsule aspirin 81 mg capsule 81 mg PO DAILY 12/19/21 12/19/21 Unknown gabapentin 300 mg capsule 300 mg PO DIRECTED 12/19/21 12/19/21 Unknown levothyroxine 50 mcg tablet 50 mcg PO DAILY 12/19/21 12/19/21 Unknown Active Medications Generic Name Dose Route Start Last Admin Trade Name Freq PRN Reason Stop Dose Admin Amitriptyline HCl 25 mg 12/19/21 21:00 12/19/21 20:59 Amitriptyline Hcl 25 Mg Tab PO 01/18/22 20:59 25 mg HS BRADY Administration Amlodipine Besylate 5 mg 12/20/21 09:00 12/20/21 09:12 Amlodipine Besylate 5 Mg Tab PO 01/19/22 08:59 5 mg DAILY BRADY Administration Aspirin 81 mg 12/20/21 09:00 12/20/21 09:13 Aspirin 81 Mg Ectab PO 01/19/22 08:59 81 mg DAILY BRADY Administration Atorvastatin Calcium 40 mg 12/20/21 09:00 12/20/21 09:13 Atorvastatin 40 Mg Tab PO 01/19/22 08:59 40 mg QAM BRADY Administration Enalapril Maleate 40 mg 12/20/21 09:00 12/20/21 09:13 Enalapril Maleate 10 Mg Tab PO 01/19/22 08:59 40 mg DAILY BRADY Administration Enoxaparin Sodium 40 mg 12/19/21 21:00 12/19/21 21:00 Enoxaparin Inj 40 Mg/0.4 Ml Syr SQ 01/18/22 20:59 40 mg Q24H BRADY Administration Gabapentin 600 mg 12/19/21 21:00 12/20/21 09:13 Gabapentin 600 Mg Tab PO 01/18/22 20:59 600 mg BID BRADY Administration Gabapentin 300 mg 12/19/21 15:00 12/20/21 15:30 Gabapentin 300 Mg Cap PO 01/18/22 14:59 300 mg DAILY@1500 BRADY Administration Dexamethasone 8 mg/ Syringe 2 mls @ 1 mls/min 12/19/21 20:00 12/20/21 13:15 IV 12/20/21 19:59 1 mls/min Q8H BRADY Administration Sodium Chloride 1,000 mls @ 80 mls/hr 12/20/21 14:45 12/20/21 15:30 Nss 1000ml IV 01/19/22 14:44 80 mls/hr .[id number] BRADY Administration Levothyroxine Sodium 50 mcg 12/20/21 06:30 12/20/21 06:01 Levothyroxine Sodium 50 Mcg Tablet PO 01/19/22 06:29 50 mcg DAILYBB BRADY Administration Past Medical History Medical History Chronic lower back pain Foot drop, right HTN (hypertension) Insomnia HLD;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; hypothyroidism Exercise / Class Metabolic Activity III < 4 Walking/Shop/Light housework Past Family History Family History Other GI bleed Past Surgical History Surgical History History of back surgery History of knee replacement Past Anesthesia History No Hx of Anesthesia Complications and No Family Hx of Anesthesia Complications History of PONV No Hx of PONV and No Hx of Motion Sickness Social History Smoking Status: Former smoker Hx Alcohol Use: Yes Alcohol type: wine alcohol intake frequency: a few times a week Alcohol Intake Frequency Comment: "glass a wine maybe 3 times per week" Hx Substance Use: No substance use type: does not use Physical Exam Vital Signs Last Vital Signs Temp 36.4 C L 12/20/21 19:24 Pulse 84 12/20/21 19:24 Resp 18 12/20/21 19:24 BP 148/82 H 12/20/21 19:24 Pulse Ox 93 12/20/21 19:24 Testing Laboratory Results 12/20/21 07:08 12/20/21 07:08 PT 10.9 Seconds (9.0-12.0) 12/19/21 09:43 INR 1.0 (0.9-1.1) 12/19/21 09:43 APTT 30.8 Seconds (21.0-31.0) 12/19/21 09:43 Hemoglobin A1c 5.7 % (4.5-5.6) H 12/20/21 07:08 Urine Color Yellow 12/19/21 13:30 Urine Appearance Clear (Clear) 12/19/21 13:30 Urine pH 7.0 (4.5-7.5) 12/19/21 13:30 Ur Specific [place] 1.028 (1.000-1.030) 12/19/21 13:30 Urine Protein Negative (Negative) 12/19/21 13:30 Urine Glucose (UA) Negative (Negative) 12/19/21 13:30 Urine Ketones Negative (Negative) 12/19/21 13:30 Urine Nitrite Negative (Negative) 12/19/21 13:30 Ur Leukocyte Esterase Negative (Negative) 12/19/21 13:30 Blood Type A Positive 12/19/21 09:43 Antibody Screen NEGATIVE 12/19/21 09:43 Electrocardiogram Date: 12/19/21 Findings: + NSR @ (w/ 1st degree AVB;IRBBB;? infer. infarct,? age) Echocardiogram Date: 12/20/21 EF: 60% LV Function: normal RWMA: + none Other Findings: + diastolic dysfunction (grade 1)
[2021-12-20] MEDS: AMITRIPTYLINE HCL 25 MG TAB PO SCH (21:22)
[2021-12-21] MEDS: SODIUM CHLORIDE 0.9% 1000ML 1,000 ML IV SCH ×4 (03:41→22:40)
[2021-12-21] MEDS: LEVOTHYROXINE SODIUM 50 MCG TABLET PO SCH (06:03)
--- NOTE | 2021-12-21 07:46 | History & Physical Bridge Note ---
Date of Service December 21, 2021 History & Physical Bridge Note I have examined the patient, reviewed the History & Physical and in the interval since the performance of the History & Physical I have noted the following changes of clinical significance: no changes noted Anterior cervical corpectomy C4
[2021-12-21 07:49] LABS: Basophils # (auto) 0.02 K/uL (0-0.2); Basophils % (auto) 0.1 %; Hemoglobin 14.1 g/dl (14.0-18.0); Immature Granulocytes # (auto) 0.07 K/uL (0.00-0.02); Immature Granulocytes % (auto) 0.4 %; Lymphocytes # (auto) 2.24 K/uL (1.2-3.4); Mean Corpuscular Hemoglobin 33.7 pg (25.0-34.0); Mean Corpuscular Hgb Conc 36.2 g/dL (32.0-36.0); Mean Corpuscular Volume 93.3 fL (80.0-100.0); Mean Platelet Volume 9.4 fL (9.4-12.4); Monocytes # (auto) 1.49 K/uL (0.24-0.82); Monocytes % (auto) 8.6 %; Neutrophils # (auto) 13.46 K/uL (1.4-6.5); Neutrophils % (auto) 77.9 %; Platelet Count 192 K/uL (130-400); RDW Coefficient of Variation 12.7 % (11.5-14.5); RDW Standard Deviation 43.2 fL (36.4-46.3); Red Blood Count 4.18 M/uL (4.63-6.08); White Blood Count 17.28 K/ul (4.8-10.8)
[2021-12-21] MEDS ORDERED: NEOSTIGMINE METHYLSULFATE 1 MG/ML 10ML VIAL ONE (07:55)
[2021-12-21] MEDS ORDERED: ROCURONIUM BROMIDE 10 MG/ML 5 ML VIAL IV ONE (07:55)
[2021-12-21] MEDS ORDERED: fentaNYL citrate 100 MCG/2 ML VIAL ONE (07:55)
[2021-12-21] MEDS ORDERED: DEXAMETHASONE SOD INJ 4 MG/ML VIAL ONE (07:55)
[2021-12-21] MEDS ORDERED: HYDROmorphone INJ 2 MG/ML SYR/VIAL ONE (07:55)
[2021-12-21] MEDS ORDERED: PROPOFOL IV EMULSION 10 MG/ML 20 ML VIAL IV ONE (07:55)
[2021-12-21] MEDS ORDERED: ONDANSETRON INJ 2 MG/ML 2 ML VIAL ONE (07:55)
[2021-12-21] MEDS ORDERED: GLYCOPYRROLATE 0.2 MG/ML VIAL ONE (07:55)
[2021-12-21] MEDS ORDERED: LIDOCAINE 2% 2 ML VIAL/AMP(20MG/ML) INFIL ONE (07:55)
[2021-12-21 08:12] LABS: BUN Creatinine Ratio 29.8 (10-20); Calcium 9.2 mg/dl (8.5-10.1); Est GFR (African American) 78.2 ml/min; Est GFR (Non-African American) 67.5 ml/min; Potassium 4.1 mmol/L (3.5-5.1)
[2021-12-21] MEDS ORDERED: ceFAZolin 2000MG 2,000 MG/15 ML SYR IV ONE (08:34)
[2021-12-21] MEDS ORDERED: ATROPINE SULFATE 0.1 MG/ML 10ML SYR IV PRN (08:35)
[2021-12-21] MEDS ORDERED: ONDANSETRON INJ 2 MG/ML 2 ML VIAL IV PRN ×2 (08:35→12:22)
[2021-12-21] MEDS ORDERED: ePHEDrine sulfate 50 MG/ML AMP IV PRN (08:35)
[2021-12-21] MEDS ORDERED: fentaNYL citrate 100 MCG/2 ML VIAL IV PRN (08:35)
[2021-12-21] MEDS ORDERED: ceFAZolin 2,000 MG/15 ML IV PUSH IV ONE (08:36)
[2021-12-21] MEDS ORDERED: ceFAZolin 330 MG/ML 1 GM VIAL ONE ×3 (08:53→09:02)
--- NOTE | 2021-12-21 10:47 | Operative Report ---
Post Operative Report Pre & Post Diagnosis Operation Date: 12/21/21 08:15 Pre-Op Diagnosis: Severe cervical spinal stenosis with myeloradiculopathy Post-Op Diagnosis: Same I identified the patient and participated in the time-out.: Yes Procedure Operation Date: 12/21/21 08:15 Actual Procedures #1 anterior cervical corpectomy with bilateral foraminotomies C4. #2 anterior cervical arthrodesis C3-C5. #3 placement of 25 mm peek cage C3-C5. #4 placement of locally harvested morselized autograft combined with I factor interbody cage. #5 application of 5 complete and screws from C3-C5. Surgeon Maxim Tiwari, DO Registered Respiratory Therapist Grazyna Robbins Estimated Blood Loss 10 Findings Consistent with Post-Op Diagnosis Specimens None Indications This is an 81-year-old male who presents above-mentioned diagnosis and is here for urgent anterior cervical decompression and fusion Description of Procedure Patient was met with identified informed consent obtained. Patient was then taken to the operative suite underwent intubation placed in supine position on the Feliz table with the head Jo baker head. All bony prominences well-padded eyes inspected to ensure no external pressure placed upon them. This point the anterior cervical spine was prepped and draped in normal sterile fashion. The assistance of fluoroscopy identify the C4 vertebral body and a transverse incision was placed along the right anterior aspect of the cervical spine overlying this region. Blunt dissection with assistance of bipolar electrocautery was performed down to and exposing the anterior cervical spine from C3-C5. A self-retaining retractors placed. Then performed a complete discectomy of C3-C4 out to the uncovertebral joints bilaterally followed by C4- C5. Rosenberg distracting pins were then placed in C3 and C5 to distract across the C4 vertebral body. A complete corpectomy was then performed including removal of all posterior annular fibers longitudinal ligament and bilateral foraminotomies addressing severe spinal stenosis. Endplates were then burred to subcortical bleeding bone and a 25 mm peek cage filled with I factor and locally harvested morselized autograft tapped in position. Distracting apparatus was removed and all anterior osteophytes burred to smooth cortical surface. 5 complete and screws was then applied with the assistance of fluoroscopy. The incision was then copiously irrigated explored to ensure no damage to surrounding structures remaining bleeding. 10 round SAE drain inserted. The incision was then closed with 2 Vicryl in a fashion of 4 Monocryl for final skin closure. Steri-Strip sterile dressings placed. Patient waken taken to PACU stable condition. Please note spinal cord monitoring was utilized at the procedure no changes noted. Lastly Grazyna Robbins was present at the entire procedure and on the patient positioning complex portions of the surgery and fascial closure. I attest to the content of the Intraoperative Record and any orders documented therein. Any exceptions are noted below.
--- NOTE | 2021-12-21 11:21 | Fluoroscopy Report ---
FL cervical 2-3V CLINICAL HISTORY: ACDF C3-5 C4 CORPECTOMY COMPARISON STUDY: None. FLUOROSCOPY TIME: 10 seconds. FINDINGS: 2 fluoroscopic spot images of the cervical spine were submitted for review. There is anteri or cervical discectomy and fusion from C3 through C5 with C4 corpectomy and bone graft. The hardware appears intact. IMPRESSION: Fluoroscopic assistance provided for C3-C5 ACDF. ACT 112: Negative or not required by law. Electronically signed by: Rian Hinton M.D. 12/21/2021 11:20 AM
--- NOTE | 2021-12-21 11:55 | Anesthesiology Progress Note ---
Date of Service December 21, 2021 Anesthesia Post Procedure Vital Signs Vital Signs: Temp Pulse Pulse Pulse Pulse Resp BP 12/21/21 11:50 65 20 146/76 H 12/21/21 11:40 97.3 F L 63 20 139/78 12/21/21 11:30 63 16 145/79 H 12/21/21 11:20 60 16 143/81 H 12/21/21 11:10 66 16 146/84 H 12/21/21 11:00 72 20 166/88 H 12/21/21 10:57 97.2 F L 84 18 164/82 H 12/21/21 08:29 98.1 F 74 12/21/21 07:40 97.7 F 66 18 167/83 H 12/21/21 02:48 98.1 F 61 16 12/20/21 23:16 75 12/20/21 23:05 98.1 F 60 18 12/20/21 19:24 97.5 F L 84 18 12/20/21 14:38 97.7 F 86 20 12/20/21 13:27 97.9 F 75 14 148/88 H BP Pulse Ox 12/21/21 11:50 95 12/21/21 11:40 95 12/21/21 11:30 98 12/21/21 11:20 98 12/21/21 11:10 99 12/21/21 11:00 99 12/21/21 10:57 98 12/21/21 08:29 165/90 H 97 12/21/21 07:40 95 12/21/21 02:48 120/72 94 12/20/21 23:16 12/20/21 23:05 123/74 94 12/20/21 19:24 148/82 H 93 12/20/21 14:38 147/84 H 94 12/20/21 13:27 95 Transfer of Care Handoff Completed per policy Notes Mental Status: alert / awake / arousable and participated in evaluation Patient Amnestic to Procedure: Yes Nausea / Vomiting: adequately controlled Pain: adequately controlled Airway Patency, RR, SpO2: stable & adequate BP & HR: stable & adequate Hydration State: stable & adequate Anesthetic Complications: no major complications apparent and Pt Satisfied with anesthetic care
[2021-12-21] MEDS ORDERED: RACEPINEPHRINE 2.25% NEBU SOLN 0.5 ML VIAL INH PRN (12:22)
[2021-12-21] MEDS ORDERED: dexAMETHasone 8 MG in SYRINGE 0 ML IV PRN (12:22)
[2021-12-21] MEDS ORDERED: diphenhydrAMINE Capsule 25 MG CAP PO PRN (12:22)
[2021-12-21] MEDS ORDERED: METOCLOPRAMIDE HCL INJ 5 MG/ML 2 ML VIAL IV PRN (12:22)
[2021-12-21] MEDS ORDERED: ALUMINUM/MAGNESIUM SUSP 30 ML UDC PO PRN (12:22)
[2021-12-21] MEDS ORDERED: oxyCODONE HCL IR 5 MG TAB (IMMEDIATE RELEASE) PO PRN (12:22)
[2021-12-21] MEDS ORDERED: DO NOT ADMINISTER FLU VACCINE PRN (12:22)
[2021-12-21] MEDS ORDERED: LORazepam 0.5 MG TAB PO PRN (12:22)
[2021-12-21] MEDS ORDERED: FAMOTIDINE 20 MG TAB PO PRN (12:22)
[2021-12-21] MEDS ORDERED: HYDROmorphone INJ 1 MG/ML SYRINGE IV PRN (12:22)
[2021-12-21] MEDS ORDERED: ACETAMINOPHEN 1,000 MG/100 ML VIAL IV PRN (12:22)
[2021-12-21] MEDS ORDERED: SOD PHOSPHATE/SOD BIPHOSPHATE ENEMA 132 ML BTL PR PRN (12:22)
[2021-12-21] MEDS ORDERED: bisacodyL 10 MG SUPP PR PRN (12:22)
[2021-12-21] MEDS ORDERED: MAGNESIUM HYDROXIDE SUSP 30 ML UDC PO PRN (12:22)
[2021-12-21] MEDS ORDERED: hydrOXYzine HCl 25 MG TAB PO PRN (12:22)
[2021-12-21] MEDS ORDERED: ONDANSETRON 4 MG OD TAB PO PRN (12:22)
[2021-12-21] MEDS ORDERED: DO NOT ADMINISTER PNEUMOCOCCAL VACCINE PRN (12:22)
[2021-12-21] MEDS ORDERED: PROMETHAZINE HCL 12.5 MG in SODIUM CHLORIDE 0.9% 50 ML IV PRN (12:22)
[2021-12-21] MEDS ORDERED: traMADol HCL 50 MG TABLET PO PRN (12:22)
[2021-12-21] MEDS ORDERED: ACETAMINOPHEN 500 MG TAB PO PRN (12:22)
[2021-12-21] MEDS ORDERED: NALOXONE HCL 0.4 MG/1 ML VIAL/CARP IV PRN (12:22)
[2021-12-21] MEDS: HYDROmorphone INJ 0.5 MG/0.5 ML SYR IV PRN ×3 (12:50→22:19)
[2021-12-21] MEDS: ENALAPRIL MALEATE 10 MG TAB PO SCH (12:52)
[2021-12-21] MEDS: GABAPENTIN 600 MG TAB PO SCH ×2 (12:52→20:59)
[2021-12-21] MEDS: amLODIPine BESYLATE 5 MG TAB PO SCH (12:52)
[2021-12-21] MEDS: ATORVASTATIN 40 MG TAB PO SCH (12:52)
[2021-12-21] MEDS: LORazepam 0.5 MG in SYRINGE 0.25 ML IV PRN (13:56)
[2021-12-21] MEDS: GABAPENTIN 300 MG CAP PO SCH (14:30)
[2021-12-21] MEDS: dexAMETHasone 8 MG in SYRINGE 0 ML IV SCH ×2 (14:46→22:45)
[2021-12-21] MEDS: ceFAZolin 2000MG 2,000 MG/15 ML SYR IV SCH (17:17)
--- NOTE | 2021-12-21 18:03 | Hospitalist Progress Note ---
Date of Service December 21, 2021 Assessment & Plan (1) Stenosis of cervical spine with myelopathy: (2) Urinary retention: Plan: 81year old male who presented to the ED 12/19 with acute onset bilateral arm and leg weakness, symptoms started around 8 am on 12/19. Stroke work up was negative but showed severe canal and neural foraminal stenosis, most prominent at C4-C5 with spinal cord edema concerning for cord ischemia. He was started on decadron with improvement. He was seen by orthopedic surgery and recommended urgent [facility]. He is from [facility] but was here on vacation. Cervical spine MRI 12/19- Multilevel degenerative changes with severe canal and neural foraminal stenosis, most prominent at C4-C5 with spinal cord edema. Findings are concerning for cord ischemia. 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 CT head and MRI brain with no acute abnormality CTA head/neck 1. No acute intracranial abnormality. 2. 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 No evidence of aneurysm rupture. 3. Otherwise unremarkable CTA of the head and neck. 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 Urinary retention and now on farfan. - S/p surgery today by Dr Tiwari POD#0 ( #1 anterior cervical corpectomy with bilateral foraminotomies C4. #2 anterior cervical arthrodesis C3-C5. #3 placement of 25 mm peek cage C3-C5. #4 placement of locally harvested morselized autograft combined with I factor interbody cage. #5 application of 5 complete and screws from C3-C5.) - Further management per orthopedic surgery Acute urinary retention- from above- continue afrfan. HTN: continue vasotec Hypothyroidism- on synthroid Insomnia and Chronic Lower back pain s/p back surgery: Continue Amitriptyline and gabapentin leucocytosis- likely from steroids. Will recheck in am Dispo: Medsurg. S/p OR today. PT/OT eval pending Admission and Anticipated Discharge Date Admission Date: December 19, 2021 Subjective Seen after surgery. Complaining of severe pain at the back of neck which was present even prior to surgery- positional and finally able to find a comfortable position. No N/V. No fever or chills. Physical Exam Physical Exam: General: Sitting in bed, on neck collar, not in distress, on room air HEENT: EOMI, ZACKARY, MMM Neck: Incision site clean/dry/intact with drain in place, Chest: Clear breath sounds bilaterally, no wheezes or crackles CVS: Regular rate and rhythm, normal heart sounds, no murmur Abdomen: Soft, non tender, not distended, normal bowel sounds Neuro: Awake, alert, oriented, conversing well Extremities: No cyanosis, clubbing or edema Farfan with donavan urine Results & Data Results & Data ([facility]) Vital Signs (Past 12 Hours) Vital Signs Temp Pulse Pulse Pulse Resp BP BP 12/21/21 17:15 36.9 C 83 16 145/78 H 12/21/21 15:24 77 18 12/21/21 15:15 36.8 C 93 H 18 138/72 12/21/21 14:15 36.6 C 88 18 152/76 H 12/21/21 13:19 76 18 12/21/21 13:15 36.5 C 94 H 18 158/79 H 12/21/21 12:45 36.5 C 93 H 16 151/78 H 12/21/21 12:22 12/21/21 12:15 36.4 C L 93 H 16 160/90 H 12/21/21 12:00 71 20 150/79 H 12/21/21 11:50 65 20 146/76 H 12/21/21 11:40 36.3 C L 63 20 139/78 12/21/21 11:30 63 16 145/79 H 12/21/21 11:20 60 16 143/81 H 12/21/21 11:10 66 16 146/84 H 12/21/21 11:00 72 20 166/88 H 12/21/21 10:57 36.2 C L 84 18 164/82 H 12/21/21 08:29 36.7 C 74 165/90 H 12/21/21 07:40 36.5 C 66 18 167/83 H Pulse Ox Pulse Ox 12/21/21 17:15 96 12/21/21 15:24 94 12/21/21 15:15 94 12/21/21 14:15 95 12/21/21 13:19 93 12/21/21 13:15 94 12/21/21 12:45 93 12/21/21 12:22 95 12/21/21 12:15 93 12/21/21 12:00 94 12/21/21 11:50 95 12/21/21 11:40 95 12/21/21 11:30 98 12/21/21 11:20 98 12/21/21 11:10 99 12/21/21 11:00 99 12/21/21 10:57 98 12/21/21 08:29 97 12/21/21 07:40 95 Laboratory Results Short CBC 12/21/21 Range/Units 07:41 WBC 17.28 H (4.8-10.8) K/ul Hgb 14.1 (14.0-18.0) g/dl Hct 39.0 L (40.1-51.0) % Plt Count 192 (130-400) K/uL BMP 12/21/21 07:41 Sodium 135 L Potassium 4.1 Chloride 104 Carbon Dioxide 25 BUN 31 H Creatinine 1.04 Glucose 137 H Calcium 9.2 Medications Administered Current Inpatient Medications Acetaminophen (Acetaminophen 500 Mg Tab) 1,000 mg PO Q8H PRN PRN Reason: MILD Pain Scale 1,2,3 & Pre PT Stop: 01/20/22 12:21 Al Hydrox/Mg Hydrox/Simethicone (Aluminum/Magnesium Susp 30 Ml Udc) 30 ml PO Q6H PRN PRN Reason: Dyspepsia Stop: 01/20/22 12:21 Amitriptyline HCl (Amitriptyline Hcl 25 Mg Tab) 25 mg PO [facility] Stop: 01/18/22 20:59 Last Admin: 12/20/21 21:22 Dose: 25 mg Documented by: Amlodipine Besylate (Amlodipine Besylate 5 Mg Tab) 5 mg PO DAILY [facility] Stop: 01/19/22 08:59 Last Admin: 12/21/21 12:52 Dose: Not Given Documented by: Atorvastatin Calcium (Atorvastatin 40 Mg Tab) 40 mg PO QAM [facility] Stop: 01/19/22 08:59 Last Admin: 12/21/21 12:52 Dose: Not Given Documented by: Bisacodyl (Bisacodyl 10 Mg Supp) 10 mg NV DAILY PRN PRN Reason: Constipation Stop: 01/20/22 12:21 Brimonidine Tartrate (Brimonidine Tartrate 0.2% 5ml) 1 drops OPL BID [facility] Stop: 01/20/22 20:59 Diphenhydramine HCl (Diphenhydramine Capsule 25 Mg Cap) 25 mg PO Q6H PRN PRN Reason: Allergic Rhinitis/Insomnia Stop: 01/20/22 12:21 Enalapril Maleate (Enalapril Maleate 10 Mg Tab) 40 mg PO DAILY [facility] Stop: 01/19/22 08:59 Last Admin: 12/21/21 12:52 Dose: Not Given Documented by: Epinephrine (Racepinephrine 2.25% Nebu Soln 0.5 Ml Vial) 0.5 ml INH NOW PRN PRN Reason: If stridor present Famotidine (Famotidine 20 Mg Tab) 20 mg PO Q12H PRN PRN Reason: Dyspepsia Stop: 01/20/22 12:21 Gabapentin (Gabapentin 600 Mg Tab) 600 mg PO BID [facility] Stop: 01/18/22 20:59 Last Admin: 12/21/21 12:52 Dose: Not Given Documented by: Gabapentin (Gabapentin 300 Mg Cap) 300 mg PO DAILY@1500 [facility] Stop: 01/18/22 14:59 Last Admin: 12/21/21 14:30 Dose: Not Given Documented by: Hydromorphone HCl (Hydromorphone Inj 0.5 Mg/0.5 Ml Syr) 0.5 mg IV Q3H PRN PRN Reason: MODERATE Pain (Scale 4,5,6) & Pre PT Stop: 01/04/22 12:21 Last Admin: 12/21/21 13:26 Dose: 0.5 mg Documented by: Hydromorphone HCl (Hydromorphone Inj 1 Mg/Ml Syringe) 1 mg IV Q3H PRN PRN Reason: SEVERE Pain (Scale 7,8,9,10) Stop: 01/04/22 12:21 Hydroxyzine HCl (Hydroxyzine Hcl 25 Mg Tab) 25 mg PO Q8H PRN PRN Reason: Anxiety Stop: 01/20/22 12:21 Sodium Chloride (Nss 1000ml) 1,000 mls @ 80 mls/hr IV .[id number] [facility] Stop: 01/19/22 14:44 Last Infusion: 12/21/21 14:30 Dose: Infused Documented by: Dexamethasone 8 mg/ Syringe 2 mls @ 1 mls/min IV NOW PRN PRN Reason: If stridor present Cefazolin Sodium (Ancef 2000mg) 2,000 mg in 15 mls @ 3.75 mls/min IV Q8H [facility]; Protocol Stop: 12/22/21 01:03 Last Admin: 12/21/21 17:17 Dose: 3.75 mls/min Documented by: Acetaminophen (Ofirmev) 1,000 mg in 100 mls @ 400 mls/hr IV Q8H PRN PRN Reason: Pain Rating 1-3 & Pre PT Stop: 12/24/21 12:21 Lorazepam 0.5 mg/ Syringe 0.5 mls @ 2 mls/min IV Q8H PRN PRN Reason: Sedation/Anxiety Stop: 01/20/22 12:21 Last Admin: 12/21/21 13:56 Dose: 2 mls/min Documented by: Dexamethasone 8 mg/ Syringe 2 mls @ 1 mls/min IV Q8H [facility] Stop: 12/22/21 06:01 Last Admin: 12/21/21 14:46 Dose: 1 mls/min Documented by: Sodium Chloride (Nss 1000ml) 1,000 mls @ 100 mls/hr IV .Q10H [facility] Stop: 01/20/22 12:21 Last Admin: 12/21/21 12:53 Dose: 100 mls/hr Documented by: Promethazine HCl 12.5 mg/ (Sodium Chloride) 50.5 mls @ 202 mls/hr IV Q6H PRN PRN Reason: Nausea &/or Vomiting Stop: 01/20/22 12:21 Influenza Virus Vaccine Quadrival (Do Not Administer Flu Vaccine) 1 ea N/A PRN PRN PRN Reason: Notification Stop: 01/20/22 12:21 Latanoprost (Latanoprost 0.005% Op Soln 2.5 Ml Btl) 1 drops OP HS [facility] Stop: 01/20/22 20:59 Levothyroxine Sodium (Levothyroxine Sodium 50 Mcg Tablet) 50 mcg PO DAILYBB [facility] Stop: 01/19/22 06:29 Last Admin: 12/21/21 06:03 Dose: 50 mcg Documented by: Lorazepam (Lorazepam 0.5 Mg Tab) 0.5 mg PO Q8H PRN PRN Reason: Sedation/Anxiety Stop: 01/20/22 12:21 Magnesium Hydroxide (Magnesium Hydroxide Susp 30 Ml Udc) 30 ml PO Q24H PRN PRN Reason: Constipation Stop: 01/20/22 12:21 Metoclopramide HCl (Metoclopramide Hcl Inj 5 Mg/Ml 2 Ml Vial) 10 mg IV Q6H PRN PRN Reason: Nausea &/or Vomiting Stop: 01/20/22 12:21 Naloxone HCl (Naloxone Hcl 0.4 Mg/1 Ml Vial/Carp) 0.1 mg IV Q5M PRN PRN Reason: Oversedation/Resp depression Stop: 01/20/22 12:21 Ondansetron HCl (Ondansetron Inj 2 Mg/Ml 2 Ml Vial) 4 mg IV Q6H PRN PRN Reason: Nausea &/or Vomiting Stop: 01/20/22 12:21 Ondansetron HCl (Ondansetron 4 Mg Od Tab) 4 mg PO Q6H PRN PRN Reason: Nausea Stop: 01/20/22 12:21 Oxycodone HCl (Oxycodone Hcl Ir 5 Mg Tab (Immediate Release)) 5 - 10 mg PO Q4H PRN PRN Reason: Pain & Pre PT Stop: 01/04/22 12:21 Pneumococcal Polyvalent Vaccine (Do Not Administer Pneumococcal Vaccine) 1 ea N/A PRN PRN PRN Reason: Notification Stop: 01/20/22 12:21 Polyethylene Glycol (Polyethylene (Miralax) 17 Gm Pack) 17 gm PO Q6 [facility] Stop: 01/21/22 05:59 Senna/Docusate Sodium (Docusate Sodium/Senna 50/8.6mg Tab) 2 tab PO HS [facility] Stop: 01/20/22 20:59 Sodium Biphosphate/Sodium Phosphate (Sod Phosphate/Sod Biphosphate Enema 132 Ml Btl) 132 ml NV ONE PRN PRN Reason: Constipation Stop: 01/20/22 12:21 Tramadol HCl (Tramadol Hcl 50 Mg Tablet) 50 - 100 mg PO Q4H PRN PRN Reason: Moderate-Severe pain & Pre PT Stop: 01/20/22 12:21
[2021-12-21] MEDS: DOCUSATE SODIUM/SENNA 50/8.6MG TAB PO SCH (20:59)
[2021-12-21] MEDS: BRIMONIDINE TARTRATE 0.2% 5ML OPL SCH (20:59)
[2021-12-21] MEDS: AMITRIPTYLINE HCL 25 MG TAB PO SCH (20:59)
[2021-12-21] MEDS: LATANOPROST 0.005% OP SOLN 2.5 ML BTL OP SCH (21:00)
[2021-12-22] MEDS: HYDROmorphone INJ 0.5 MG/0.5 ML SYR IV PRN ×2 (01:26→11:10)
[2021-12-22] MEDS: ceFAZolin 2000MG 2,000 MG/15 ML SYR IV SCH (01:26)
[2021-12-22] MEDS: LEVOTHYROXINE SODIUM 50 MCG TABLET PO SCH (06:12)
[2021-12-22] MEDS: POLYETHYLENE (MIRALAX) 17 GM PACK PO SCH ×4 (06:13→21:51)
[2021-12-22] MEDS: dexAMETHasone 8 MG in SYRINGE 0 ML IV SCH (06:13)
[2021-12-22 06:21] LABS: Basophils # (auto) 0.01 K/uL (0-0.2); Basophils % (auto) 0.1 %; Hematocrit (blood only) 36.9 % (40.1-51.0); Hemoglobin 13.2 g/dl (14.0-18.0); Immature Granulocytes # (auto) 0.14 K/uL (0.00-0.02); Immature Granulocytes % (auto) 0.8 %; Lymphocytes % (auto) 9.1 %; Mean Corpuscular Hemoglobin 33.4 pg (25.0-34.0); Mean Corpuscular Hgb Conc 35.8 g/dL (32.0-36.0); Mean Corpuscular Volume 93.4 fL (80.0-100.0); Mean Platelet Volume 9.7 fL (9.4-12.4); Monocytes # (auto) 0.97 K/uL (0.24-0.82); Monocytes % (auto) 5.5 %; Neutrophils # (auto) 14.83 K/uL (1.4-6.5); Neutrophils % (auto) 84.5 %; Platelet Count 201 K/uL (130-400); RDW Coefficient of Variation 12.8 % (11.5-14.5); RDW Standard Deviation 44.2 fL (36.4-46.3); Red Blood Count 3.95 M/uL (4.63-6.08); White Blood Count 17.55 K/ul (4.8-10.8)
[2021-12-22 06:46] LABS: BUN Creatinine Ratio 29.3 (10-20); Calcium 8.8 mg/dl (8.5-10.1); Creatinine Clr Calc Pharmacy 72.4 ml/min; Est GFR (African American) 90.7 ml/min; Est GFR (Non-African American) 78.3 ml/min; Potassium 4.4 mmol/L (3.5-5.1)
[2021-12-22] MEDS: SODIUM CHLORIDE 0.9% 1000ML 1,000 ML IV SCH ×3 (07:23→10:18)
[2021-12-22] MEDS: ATORVASTATIN 40 MG TAB PO SCH (10:17)
[2021-12-22] MEDS: BRIMONIDINE TARTRATE 0.2% 5ML OPL SCH ×2 (10:17→20:05)
[2021-12-22] MEDS: amLODIPine BESYLATE 5 MG TAB PO SCH (10:17)
[2021-12-22] MEDS: ENALAPRIL MALEATE 10 MG TAB PO SCH (10:18)
[2021-12-22] MEDS: GABAPENTIN 600 MG TAB PO SCH ×2 (10:18→20:05)
[2021-12-22] MEDS ORDERED: GABAPENTIN 250 MG/5 ML 470 ML BTL PO SCH ×2 (10:30→15:00)
--- NOTE | 2021-12-22 11:26 | Orthopedic Progress Note ---
Date of Service December 22, 2021 Assessment & Plan (1) Stenosis of cervical spine with myelopathy: Plan: This time we will maintain the SAE drain initiate occupational and physical therapy to assess his progress and make final determination regarding disposition in the next day or so. Admission and Anticipated Discharge Date Admission Date: December 19, 2021 Subjective Patient signs symptoms are improving. He swallowing well. No hoarseness. Physical Exam Physical Exam: Patient has good strength testing the upper and lower extremities. Sensory symmetric and intact to cold and light touch. Dressing is in place in the drain is functioning. Results & Data ([facility]) Vital Signs (Past 12 Hours) Vital Signs Temp Pulse Resp BP Pulse Ox 12/22/21 10:55 104 H 19 97 12/22/21 07:14 91 H 19 96 12/22/21 06:00 36.4 C L 86 16 95 12/22/21 02:52 36.3 C L 75 16 163/82 H 93 12/22/21 02:45 62 18 92 12/22/21 01:24 36.4 C L 66 18 178/94 H 94
[2021-12-22] MEDS ORDERED: Nursing to Pharmacy Communication SCH (12:30)
[2021-12-22] MEDS: LORazepam 0.5 MG in SYRINGE 0.25 ML IV PRN (13:49)
[2021-12-22] MEDS: GABAPENTIN 300 MG CAP PO SCH (16:26)
--- NOTE | 2021-12-22 17:09 | Hospitalist Progress Note ---
Date of Service December 22, 2021 Assessment & Plan (1) Stenosis of cervical spine with myelopathy: (2) Urinary retention: Plan: 81year old male who presented to the ED 12/19 with acute onset bilateral arm and leg weakness, symptoms started around 8 am on 12/19. Stroke work up was negative but showed severe canal and neural foraminal stenosis, most prominent at C4-C5 with spinal cord edema concerning for cord ischemia. He was started on decadron with improvement. He was seen by orthopedic surgery and recommended urgent [facility]. He is from [facility] but was here on vacation. Cervical spine MRI 12/19- Multilevel degenerative changes with severe canal and neural foraminal stenosis, most prominent at C4-C5 with spinal cord edema. Findings are concerning for cord ischemia. 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 CT head and MRI brain with no acute abnormality CTA head/neck 1. No acute intracranial abnormality. 2. 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 No evidence of aneurysm rupture. 3. Otherwise unremarkable CTA of the head and neck. 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 Urinary retention and now on farfan. - S/p surgery by Dr Tiwari POD#1 ( #1 anterior cervical corpectomy with bilateral foraminotomies C4. #2 anterior cervical arthrodesis C3-C5. #3 placement of 25 mm peek cage C3-C5. #4 placement of locally harvested morselized autograft combined with I factor interbody cage. #5 application of 5 complete and screws from C3-C5.) - Further management per orthopedic surgery Acute urinary retention- from above- continue farfan. HTN: continue vasotec Hypothyroidism- on synthroid Insomnia and Chronic Lower back pain s/p back surgery: Continue Amitriptyline and gabapentin leucocytosis- likely from steroids. Will recheck in am DVT prophylaxis- SCDs. Chemoprophylaxis when okay per ortho Dispo: Per ortho- continue SAE drain and assess his progress to determine final dispo. Seen by PT/OT and recommended rehab. Updated daughter Mariela at bedside Admission and Anticipated Discharge Date Admission Date: December 19, 2021 Subjective He was disappointed that he was told he would have a nurse and a room but he did not have a personal nurse just for him and he was not attended all the time when he needed. He tolerated oral intake. States he feels jittery/bizarre when he does not get his gabapentin. Pain is relatively controlled. No other issues. Physical Exam Physical Exam: General: Sitting in bed, on neck collar, not in distress, on room air HEENT: EOMI, ZACKARY, MMM Neck: Incision site clean/dry/intact with drain in place, Chest: Clear breath sounds bilaterally, no wheezes or crackles CVS: Regular rate and rhythm, normal heart sounds, no murmur Abdomen: Soft, non tender, not distended, normal bowel sounds Neuro: Awake, alert, oriented, conversing well. Strength intact. Extremities: No cyanosis, clubbing or edema Farfan with donavan urine Results & Data Results & Data ([facility]) Vital Signs (Past 12 Hours) Vital Signs Temp Pulse Resp BP Pulse Ox 12/22/21 16:12 36.5 C 109 H 24 132/90 94 12/22/21 16:10 94 12/22/21 15:00 105 H 20 95 12/22/21 10:55 104 H 19 97 12/22/21 07:14 91 H 19 96 12/22/21 06:00 36.4 C L 86 16 95 Laboratory Results Short CBC 12/22/21 Range/Units 05:43 WBC 17.55 H (4.8-10.8) K/ul Hgb 13.2 L (14.0-18.0) g/dl Hct 36.9 L (40.1-51.0) % Plt Count 201 (130-400) K/uL BMP 12/22/21 05:43 Sodium 136 Potassium 4.4 Chloride 106 Carbon Dioxide 22 BUN 27 H Creatinine 0.92 Glucose 156 H Calcium 8.8 Medications Administered Current Inpatient Medications Acetaminophen (Acetaminophen 500 Mg Tab) 1,000 mg PO Q8H PRN PRN Reason: MILD Pain Scale 1,2,3 & Pre PT Stop: 01/20/22 12:21 Al Hydrox/Mg Hydrox/Simethicone (Aluminum/Magnesium Susp 30 Ml Udc) 30 ml PO Q6H PRN PRN Reason: Dyspepsia Stop: 01/20/22 12:21 Amitriptyline HCl (Amitriptyline Hcl 25 Mg Tab) 25 mg PO HS [facility] Stop: 01/18/22 20:59 Last Admin: 12/21/21 20:59 Dose: Not Given Documented by: Amlodipine Besylate (Amlodipine Besylate 5 Mg Tab) 5 mg PO DAILY [facility] Stop: 01/19/22 08:59 Last Admin: 12/22/21 10:17 Dose: 5 mg Documented by: Atorvastatin Calcium (Atorvastatin 40 Mg Tab) 40 mg PO QAM [facility] Stop: 01/19/22 08:59 Last Admin: 12/22/21 10:17 Dose: Not Given Documented by: Bisacodyl (Bisacodyl 10 Mg Supp) 10 mg SC DAILY PRN PRN Reason: Constipation Stop: 01/20/22 12:21 Brimonidine Tartrate (Brimonidine Tartrate 0.2% 5ml) 1 drops OPL BID [facility] Stop: 01/20/22 20:59 Last Admin: 12/22/21 10:17 Dose: Not Given Documented by: Diphenhydramine HCl (Diphenhydramine Capsule 25 Mg Cap) 25 mg PO Q6H PRN PRN Reason: Allergic Rhinitis/Insomnia Stop: 01/20/22 12:21 Enalapril Maleate (Enalapril Maleate 10 Mg Tab) 40 mg PO DAILY [facility] Stop: 01/19/22 08:59 Last Admin: 12/22/21 10:18 Dose: Not Given Documented by: Epinephrine (Racepinephrine 2.25% Nebu Soln 0.5 Ml Vial) 0.5 ml INH NOW PRN PRN Reason: If stridor present Famotidine (Famotidine 20 Mg Tab) 20 mg PO Q12H PRN PRN Reason: Dyspepsia Stop: 01/20/22 12:21 Gabapentin (Gabapentin 600 Mg Tab) 600 mg PO BID [facility] Stop: 01/21/22 20:59 Gabapentin (Gabapentin 300 Mg Cap) 300 mg PO DAILY@1500 [facility] Stop: 01/21/22 14:59 Last Admin: 12/22/21 16:26 Dose: 300 mg Documented by: Hydromorphone HCl (Hydromorphone Inj 0.5 Mg/0.5 Ml Syr) 0.5 mg IV Q3H PRN PRN Reason: MODERATE Pain (Scale 4,5,6) & Pre PT Stop: 01/04/22 12:21 Last Admin: 12/22/21 11:10 Dose: 0.5 mg Documented by: Hydromorphone HCl (Hydromorphone Inj 1 Mg/Ml Syringe) 1 mg IV Q3H PRN PRN Reason: SEVERE Pain (Scale 7,8,9,10) Stop: 01/04/22 12:21 Hydroxyzine HCl (Hydroxyzine Hcl 25 Mg Tab) 25 mg PO Q8H PRN PRN Reason: Anxiety Stop: 01/20/22 12:21 Sodium Chloride (Nss 1000ml) 1,000 mls @ 80 mls/hr IV .[id number] [facility] Stop: 01/19/22 14:44 Last Admin: 12/22/21 09:20 Dose: 80 mls/hr Documented by: Dexamethasone 8 mg/ Syringe 2 mls @ 1 mls/min IV NOW PRN PRN Reason: If stridor present Acetaminophen (Ofirmev) 1,000 mg in 100 mls @ 400 mls/hr IV Q8H PRN PRN Reason: Pain Rating 1-3 & Pre PT Stop: 12/24/21 12:21 Lorazepam 0.5 mg/ Syringe 0.5 mls @ 2 mls/min IV Q8H PRN PRN Reason: Sedation/Anxiety Stop: 01/20/22 12:21 Last Admin: 12/22/21 13:49 Dose: 2 mls/min Documented by: Promethazine HCl 12.5 mg/ (Sodium Chloride) 50.5 mls @ 202 mls/hr IV Q6H PRN PRN Reason: Nausea &/or Vomiting Stop: 01/20/22 12:21 Influenza Virus Vaccine Quadrival (Do Not Administer Flu Vaccine) 1 ea N/A PRN PRN PRN Reason: Notification Stop: 01/20/22 12:21 Latanoprost (Latanoprost 0.005% Op Soln 2.5 Ml Btl) 1 drops OP HS [facility] Stop: 01/20/22 20:59 Last Admin: 12/21/21 21:00 Dose: Not Given Documented by: Levothyroxine Sodium (Levothyroxine Sodium 50 Mcg Tablet) 50 mcg PO DAILYBB [facility] Stop: 01/19/22 06:29 Last Admin: 12/22/21 06:12 Dose: 50 mcg Documented by: Lorazepam (Lorazepam 0.5 Mg Tab) 0.5 mg PO Q8H PRN PRN Reason: Sedation/Anxiety Stop: 01/20/22 12:21 Magnesium Hydroxide (Magnesium Hydroxide Susp 30 Ml Udc) 30 ml PO Q24H PRN PRN Reason: Constipation Stop: 01/20/22 12:21 Metoclopramide HCl (Metoclopramide Hcl Inj 5 Mg/Ml 2 Ml Vial) 10 mg IV Q6H PRN PRN Reason: Nausea &/or Vomiting Stop: 01/20/22 12:21 Naloxone HCl (Naloxone Hcl 0.4 Mg/1 Ml Vial/Carp) 0.1 mg IV Q5M PRN PRN Reason: Oversedation/Resp depression Stop: 01/20/22 12:21 Ondansetron HCl (Ondansetron Inj 2 Mg/Ml 2 Ml Vial) 4 mg IV Q6H PRN PRN Reason: Nausea &/or Vomiting Stop: 01/20/22 12:21 Ondansetron HCl (Ondansetron 4 Mg Od Tab) 4 mg PO Q6H PRN PRN Reason: Nausea Stop: 01/20/22 12:21 Oxycodone HCl (Oxycodone Hcl Ir 5 Mg Tab (Immediate Release)) 5 - 10 mg PO Q4H PRN PRN Reason: Pain & Pre PT Stop: 01/04/22 12:21 Pneumococcal Polyvalent Vaccine (Do Not Administer Pneumococcal Vaccine) 1 ea N/A PRN PRN PRN Reason: Notification Stop: 01/20/22 12:21 Polyethylene Glycol (Polyethylene (Miralax) 17 Gm Pack) 17 gm PO Q6 [facility] Stop: 01/21/22 05:59 Last Admin: 12/22/21 16:36 Dose: Not Given Documented by: Senna/Docusate Sodium (Docusate Sodium/Senna 50/8.6mg Tab) 2 tab PO HS [facility] Stop: 01/20/22 20:59 Last Admin: 12/21/21 20:59 Dose: Not Given Documented by: Sodium Biphosphate/Sodium Phosphate (Sod Phosphate/Sod Biphosphate Enema 132 Ml Btl) 132 ml SC ONE PRN PRN Reason: Constipation Stop: 01/20/22 12:21
[2021-12-22] MEDS: AMITRIPTYLINE HCL 25 MG TAB PO SCH (20:05)
[2021-12-22] MEDS: DOCUSATE SODIUM/SENNA 50/8.6MG TAB PO SCH (20:05)
[2021-12-22] MEDS: LATANOPROST 0.005% OP SOLN 2.5 ML BTL OP SCH (20:06)
[2021-12-23] MEDS: LORazepam 0.5 MG in SYRINGE 0.25 ML IV PRN (03:23)
[2021-12-23 05:59] LABS: Basophils # (auto) 0.01 K/uL (0-0.2); Basophils % (auto) 0.1 %; Hematocrit (blood only) 36.9 % (40.1-51.0); Hemoglobin 13.2 g/dl (14.0-18.0); Immature Granulocytes # (auto) 0.08 K/uL (0.00-0.02); Immature Granulocytes % (auto) 0.5 %; Lymphocytes # (auto) 2.59 K/uL (1.2-3.4); Lymphocytes % (auto) 17.3 %; Mean Corpuscular Hemoglobin 32.8 pg (25.0-34.0); Mean Corpuscular Hgb Conc 35.8 g/dL (32.0-36.0); Mean Corpuscular Volume 91.8 fL (80.0-100.0); Mean Platelet Volume 9.3 fL (9.4-12.4); Monocytes # (auto) 1.89 K/uL (0.24-0.82); Monocytes % (auto) 12.6 %; Neutrophils % (auto) 69.5 %; Platelet Count 184 K/uL (130-400); RDW Coefficient of Variation 12.8 % (11.5-14.5); RDW Standard Deviation 42.9 fL (36.4-46.3); Red Blood Count 4.02 M/uL (4.63-6.08); White Blood Count 14.97 K/ul (4.8-10.8)
[2021-12-23 06:34] LABS: BUN Creatinine Ratio 28.6 (10-20); Calcium 8.9 mg/dl (8.5-10.1); Creatinine Clr Calc Pharmacy 73.2 ml/min; Est GFR (African American) 91.9 ml/min; Est GFR (Non-African American) 79.3 ml/min
[2021-12-23] MEDS: LEVOTHYROXINE SODIUM 50 MCG TABLET PO SCH (06:54)
[2021-12-23] MEDS: POLYETHYLENE (MIRALAX) 17 GM PACK PO SCH (06:54)
[2021-12-23] MEDS: GABAPENTIN 600 MG TAB PO SCH ×2 (09:10→20:07)
[2021-12-23] MEDS: ATORVASTATIN 40 MG TAB PO SCH (09:11)
[2021-12-23] MEDS: ENALAPRIL MALEATE 10 MG TAB PO SCH (09:11)
[2021-12-23] MEDS: amLODIPine BESYLATE 5 MG TAB PO SCH (09:11)
[2021-12-23] MEDS: BRIMONIDINE TARTRATE 0.2% 5ML OPL SCH ×2 (09:28→20:08)
--- NOTE | 2021-12-23 10:59 | Orthopedic Progress Note ---
Date of Service December 23, 2021 Assessment & Plan (1) Stenosis of cervical spine with myelopathy: Plan: This time we will continue physical therapy. We will maintain his SAE drain until tomorrow. He is ready for discharge to inpatient rehab as soon as tomorrow if transportation is available. Otherwise Saturday. Admission and Anticipated Discharge Date Admission Date: December 19, 2021 Subjective Patient swallowing well. No hoarseness. He is tolerating physical therapy. He is feeling his arm and leg symptoms are improving. Physical Exam Physical Exam: On exam he is stable to bed. He has good strength testing upper and lower extremities. Sensory is intact. SAE drain in place and functioning. Results & Data ([facility]) Vital Signs (Past 12 Hours) Vital Signs Temp Pulse Resp BP Pulse Ox 12/23/21 07:23 36.6 C 63 16 149/73 H 94 12/23/21 07:05 66 18 95 12/23/21 03:00 67 18 94 12/22/21 23:35 36.6 C 59 L 16 137/81 94
[2021-12-23] MEDS: dexAMETHasone 8 MG in SYRINGE 0 ML IV SCH (11:37)
--- NOTE | 2021-12-23 16:34 | Hospitalist Progress Note ---
Date of Service December 23, 2021 Assessment & Plan (1) Stenosis of cervical spine with myelopathy: (2) Urinary retention: Plan: 81year old male who presented to the ED 12/19 with acute onset bilateral arm and leg weakness, symptoms started around 8 am on 12/19. Stroke work up was negative but showed severe canal and neural foraminal stenosis, most prominent at C4-C5 with spinal cord edema concerning for cord ischemia. He was started on decadron with improvement. He was seen by orthopedic surgery and recommended urgent [facility]. He is from [facility] but was here on vacation. Cervical spine MRI 12/19- Multilevel degenerative changes with severe canal and neural foraminal stenosis, most prominent at C4-C5 with spinal cord edema. Findings are concerning for cord ischemia. 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 CT head and MRI brain with no acute abnormality CTA head/neck 1. No acute intracranial abnormality. 2. 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 No evidence of aneurysm rupture. 3. Otherwise unremarkable CTA of the head and neck. 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 Urinary retention and now on farfan. - S/p surgery by Dr Tiwari POD#1 ( #1 anterior cervical corpectomy with bilateral foraminotomies C4. #2 anterior cervical arthrodesis C3-C5. #3 placement of 25 mm peek cage C3-C5. #4 placement of locally harvested morselized autograft combined with I factor interbody cage. #5 application of 5 complete and screws from C3-C5.) - Further management per orthopedic surgery- SAE drain until tomorrow and can go to rehab afterwards if available Acute urinary retention- from above- continue farfan. HTN: continue vasotec Hypothyroidism- on synthroid Insomnia and Chronic Lower back pain s/p back surgery: Continue Amitriptyline and gabapentin. Will add melatonin. leucocytosis- likely from steroids. improving. Glaucoma- on eye drops DVT prophylaxis- SCDs. Chemoprophylaxis when okay per ortho Dispo: Per ortho- continue SAE drain till tomorrow. Will need rehab. Updated daughter Mariela at bedside Admission and Anticipated Discharge Date Admission Date: December 19, 2021 Subjective He could not get much sleep last night. He states he does not have any pain today. No fever chills, N/V. Had BM this morning. Tolerating diet well. Physical Exam Physical Exam: General: Sitting in bed, not in distress, on room air HEENT: EOMI, ZACKARY, MMM Neck: Incision site clean/dry/intact with drain in place, Chest: Clear breath sounds bilaterally, no wheezes or crackles CVS: Regular rate and rhythm, normal heart sounds, no murmur Abdomen: Soft, non tender, not distended, normal bowel sounds Neuro: Awake, alert, oriented, conversing well. Strength intact. Extremities: No cyanosis, clubbing or edema Farfan with donavan urine Results & Data Results & Data ([facility]) Vital Signs (Past 12 Hours) Vital Signs Temp Pulse Resp BP Pulse Ox 12/23/21 15:06 36.5 C 74 16 149/80 H 93 12/23/21 07:23 36.6 C 63 16 149/73 H 94 12/23/21 07:05 66 18 95 Laboratory Results Short CBC 12/23/21 Range/Units 05:42 WBC 14.97 H (4.8-10.8) K/ul Hgb 13.2 L (14.0-18.0) g/dl Hct 36.9 L (40.1-51.0) % Plt Count 184 (130-400) K/uL BMP 12/23/21 05:42 Sodium 136 Potassium 4.0 Chloride 104 Carbon Dioxide 26 BUN 26 H Creatinine 0.91 Glucose 124 H Calcium 8.9 Medications Administered Current Inpatient Medications Acetaminophen (Acetaminophen 500 Mg Tab) 1,000 mg PO Q8H PRN PRN Reason: MILD Pain Scale 1,2,3 & Pre PT Stop: 01/20/22 12:21 Al Hydrox/Mg Hydrox/Simethicone (Aluminum/Magnesium Susp 30 Ml Udc) 30 ml PO Q6H PRN PRN Reason: Dyspepsia Stop: 01/20/22 12:21 Amitriptyline HCl (Amitriptyline Hcl 25 Mg Tab) 25 mg PO HS [facility] Stop: 01/18/22 20:59 Last Admin: 12/22/21 20:05 Dose: 25 mg Documented by: Amlodipine Besylate (Amlodipine Besylate 5 Mg Tab) 5 mg PO DAILY [facility] Stop: 01/19/22 08:59 Last Admin: 12/23/21 09:11 Dose: 5 mg Documented by: Atorvastatin Calcium (Atorvastatin 40 Mg Tab) 40 mg PO QAM [facility] Stop: 01/19/22 08:59 Last Admin: 12/23/21 09:11 Dose: 40 mg Documented by: Bisacodyl (Bisacodyl 10 Mg Supp) 10 mg PA DAILY PRN PRN Reason: Constipation Stop: 01/20/22 12:21 Brimonidine Tartrate (Brimonidine Tartrate 0.2% 5ml) 1 drops OPL BID [facility] Stop: 01/20/22 20:59 Last Admin: 12/23/21 09:28 Dose: 1 drops Documented by: Diphenhydramine HCl (Diphenhydramine Capsule 25 Mg Cap) 25 mg PO Q6H PRN PRN Reason: Allergic Rhinitis/Insomnia Stop: 01/20/22 12:21 Enalapril Maleate (Enalapril Maleate 10 Mg Tab) 40 mg PO DAILY [facility] Stop: 01/19/22 08:59 Last Admin: 12/23/21 09:11 Dose: 40 mg Documented by: Epinephrine (Racepinephrine 2.25% Nebu Soln 0.5 Ml Vial) 0.5 ml INH NOW PRN PRN Reason: If stridor present Famotidine (Famotidine 20 Mg Tab) 20 mg PO Q12H PRN PRN Reason: Dyspepsia Stop: 01/20/22 12:21 Gabapentin (Gabapentin 600 Mg Tab) 600 mg PO BID [facility] Stop: 01/21/22 20:59 Last Admin: 12/23/21 09:10 Dose: 600 mg Documented by: Gabapentin (Gabapentin 300 Mg Cap) 300 mg PO DAILY@1500 [facility] Stop: 01/21/22 14:59 Last Admin: 12/22/21 16:26 Dose: 300 mg Documented by: Hydromorphone HCl (Hydromorphone Inj 0.5 Mg/0.5 Ml Syr) 0.5 mg IV Q3H PRN PRN Reason: MODERATE Pain (Scale 4,5,6) & Pre PT Stop: 01/04/22 12:21 Last Admin: 12/22/21 11:10 Dose: 0.5 mg Documented by: Hydromorphone HCl (Hydromorphone Inj 1 Mg/Ml Syringe) 1 mg IV Q3H PRN PRN Reason: SEVERE Pain (Scale 7,8,9,10) Stop: 01/04/22 12:21 Hydroxyzine HCl (Hydroxyzine Hcl 25 Mg Tab) 25 mg PO Q8H PRN PRN Reason: Anxiety Stop: 01/20/22 12:21 Dexamethasone 8 mg/ Syringe 2 mls @ 1 mls/min IV NOW PRN PRN Reason: If stridor present Acetaminophen (Ofirmev) 1,000 mg in 100 mls @ 400 mls/hr IV Q8H PRN PRN Reason: Pain Rating 1-3 & Pre PT Stop: 12/24/21 12:21 Lorazepam 0.5 mg/ Syringe 0.5 mls @ 2 mls/min IV Q8H PRN PRN Reason: Sedation/Anxiety Stop: 01/20/22 12:21 Last Admin: 12/23/21 03:23 Dose: 2 mls/min Documented by: Promethazine HCl 12.5 mg/ (Sodium Chloride) 50.5 mls @ 202 mls/hr IV Q6H PRN PRN Reason: Nausea &/or Vomiting Stop: 01/20/22 12:21 Dexamethasone 8 mg/ Syringe 2 mls @ 1 mls/min IV DAILY [facility] Stop: 01/22/22 11:59 Last Admin: 12/23/21 11:37 Dose: 1 mls/min Documented by: Influenza Virus Vaccine Quadrival (Do Not Administer Flu Vaccine) 1 ea N/A PRN PRN PRN Reason: Notification Stop: 01/20/22 12:21 Latanoprost (Latanoprost 0.005% Op Soln 2.5 Ml Btl) 1 drops OP HS [facility] Stop: 01/20/22 20:59 Last Admin: 12/22/21 20:06 Dose: 1 drops Documented by: Levothyroxine Sodium (Levothyroxine Sodium 50 Mcg Tablet) 50 mcg PO DAILYBB [facility] Stop: 01/19/22 06:29 Last Admin: 12/23/21 06:54 Dose: 50 mcg Documented by: Lorazepam (Lorazepam 0.5 Mg Tab) 0.5 mg PO Q8H PRN PRN Reason: Sedation/Anxiety Stop: 01/20/22 12:21 Magnesium Hydroxide (Magnesium Hydroxide Susp 30 Ml Udc) 30 ml PO Q24H PRN PRN Reason: Constipation Stop: 01/20/22 12:21 Metoclopramide HCl (Metoclopramide Hcl Inj 5 Mg/Ml 2 Ml Vial) 10 mg IV Q6H PRN PRN Reason: Nausea &/or Vomiting Stop: 01/20/22 12:21 Naloxone HCl (Naloxone Hcl 0.4 Mg/1 Ml Vial/Carp) 0.1 mg IV Q5M PRN PRN Reason: Oversedation/Resp depression Stop: 01/20/22 12:21 Ondansetron HCl (Ondansetron Inj 2 Mg/Ml 2 Ml Vial) 4 mg IV Q6H PRN PRN Reason: Nausea &/or Vomiting Stop: 01/20/22 12:21 Ondansetron HCl (Ondansetron 4 Mg Od Tab) 4 mg PO Q6H PRN PRN Reason: Nausea Stop: 01/20/22 12:21 Oxycodone HCl (Oxycodone Hcl Ir 5 Mg Tab (Immediate Release)) 5 - 10 mg PO Q4H PRN PRN Reason: Pain & Pre PT Stop: 01/04/22 12:21 Pneumococcal Polyvalent Vaccine (Do Not Administer Pneumococcal Vaccine) 1 ea N/A PRN PRN PRN Reason: Notification Stop: 01/20/22 12:21 Senna/Docusate Sodium (Docusate Sodium/Senna 50/8.6mg Tab) 2 tab PO HS [facility] Stop: 01/20/22 20:59 Last Admin: 12/22/21 20:05 Dose: 2 tab Documented by: Sodium Biphosphate/Sodium Phosphate (Sod Phosphate/Sod Biphosphate Enema 132 Ml Btl) 132 ml PA ONE PRN PRN Reason: Constipation Stop: 01/20/22 12:21
[2021-12-23] MEDS: GABAPENTIN 300 MG CAP PO SCH (16:42)
[2021-12-23] MEDS: DOCUSATE SODIUM/SENNA 50/8.6MG TAB PO SCH (20:06)
[2021-12-23] MEDS: AMITRIPTYLINE HCL 25 MG TAB PO SCH (20:06)
[2021-12-23] MEDS: MELATONIN 3 MG TAB PO SCH (20:07)
[2021-12-23] MEDS: LATANOPROST 0.005% OP SOLN 2.5 ML BTL OP SCH (20:08)
[2021-12-24] MEDS: LEVOTHYROXINE SODIUM 50 MCG TABLET PO SCH (05:42)
[2021-12-24 06:20] LABS: Hematocrit (blood only) 36.2 % (40.1-51.0); Hemoglobin 13.1 g/dl (14.0-18.0); Mean Corpuscular Hemoglobin 33.9 pg (25.0-34.0); Mean Corpuscular Hgb Conc 36.2 g/dL (32.0-36.0); Mean Corpuscular Volume 93.8 fL (80.0-100.0); Mean Platelet Volume 9.6 fL (9.4-12.4); Platelet Count 206 K/uL (130-400); RDW Coefficient of Variation 12.8 % (11.5-14.5); RDW Standard Deviation 43.8 fL (36.4-46.3); Red Blood Count 3.86 M/uL (4.63-6.08); White Blood Count 13.02 K/ul (4.8-10.8)
[2021-12-24 06:36] LABS: BUN Creatinine Ratio 31.9 (10-20); Calcium 8.8 mg/dl (8.5-10.1); Creatinine Clr Calc Pharmacy 70.8 ml/min; Est GFR (African American) 88.4 ml/min; Est GFR (Non-African American) 76.3 ml/min; Potassium 4.2 mmol/L (3.5-5.1)
[2021-12-24] MEDS ORDERED: ALBUTEROL 0.083% NEBU SOLN 3 ML VIAL NEB PRN (07:20)
[2021-12-24] MEDS: ENALAPRIL MALEATE 10 MG TAB PO SCH (09:24)
[2021-12-24] MEDS: amLODIPine BESYLATE 5 MG TAB PO SCH (09:25)
[2021-12-24] MEDS: ATORVASTATIN 40 MG TAB PO SCH (09:28)
[2021-12-24] MEDS: dexAMETHasone 8 MG in SYRINGE 0 ML IV SCH (09:28)
[2021-12-24] MEDS: GABAPENTIN 600 MG TAB PO SCH ×2 (09:28→20:35)
[2021-12-24] MEDS: BRIMONIDINE TARTRATE 0.2% 5ML OPL SCH ×2 (09:33→20:35)
[2021-12-24] MEDS: guaiFENesin 600 MG TABCR PO SCH ×2 (09:33→20:35)
--- NOTE | 2021-12-24 10:30 | Orthopedic Progress Note ---
Date of Service December 24, 2021 Assessment & Plan (1) Stenosis of cervical spine with myelopathy: Plan: At this time we will continue physical therapy discontinue his drain today anticipate discharge to rehab tomorrow Admission and Anticipated Discharge Date Admission Date: December 19, 2021 Subjective Patient's arm and leg symptoms improving. Swallowing well. Tolerating physical therapy. SAE drain decreasing appropriately. Physical Exam Physical Exam: On exam he sitting up in bed. He is tolerating fluids and foods well. Is good strength testing. Results & Data ([facility]) Vital Signs (Past 12 Hours) Vital Signs Temp Pulse Resp BP Pulse Ox 12/24/21 10:17 36.5 C 79 17 131/83 95 12/24/21 09:40 82 12/24/21 09:22 120 H 160/100 H 95 12/24/21 07:53 70 16 93 12/24/21 07:44 36.7 C 57 L 20 138/81 93 12/24/21 07:00 68 16 93 12/24/21 03:00 56 L 16 93 12/23/21 23:00 69 16 91
--- NOTE | 2021-12-24 11:29 | Hospitalist Progress Note ---
Date of Service December 24, 2021 Assessment & Plan (1) Stenosis of cervical spine with myelopathy: (2) Urinary retention: Plan: 81year old male who presented to the ED 12/19 with acute onset bilateral arm and leg weakness, symptoms started around 8 am on 12/19. Stroke work up was negative but showed severe canal and neural foraminal stenosis, most prominent at C4-C5 with spinal cord edema concerning for cord ischemia. He was started on decadron with improvement. He was seen by orthopedic surgery and recommended urgent [facility]. He is from [facility] but was here on vacation. Cervical spine MRI 12/19- Multilevel degenerative changes with severe canal and neural foraminal stenosis, most prominent at C4-C5 with spinal cord edema. Findings are concerning for cord ischemia. 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 CT head and MRI brain with no acute abnormality CTA head/neck 1. No acute intracranial abnormality. 2. 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 No evidence of aneurysm rupture. 3. Otherwise unremarkable CTA of the head and neck. 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 Urinary retention and now on farfan. - S/p surgery by Dr Tiwari POD#1 ( #1 anterior cervical corpectomy with bilateral foraminotomies C4. #2 anterior cervical arthrodesis C3-C5. #3 placement of 25 mm peek cage C3-C5. #4 placement of locally harvested morselized autograft combined with I factor interbody cage. #5 application of 5 complete and screws from C3-C5.) - Further management per orthopedic surgery- SAE drain to come out today Acute urinary retention- from above- on farfan- he would like to continue farfan until he gets to the rehab. HTN: continue vasotec Hypothyroidism- on synthroid Insomnia and Chronic Lower back pain s/p back surgery: Continue Amitriptyline and gabapentin. continue melatonin. leucocytosis- likely from steroids. improving. Glaucoma- on eye drops DVT prophylaxis- SCDs. Chemoprophylaxis when okay per ortho Dispo: Per ortho- SAE drain to come out later today. Discharge to rehab tomorrow. No transportation could be arranged today. Updated daughter Mariela at bedside Admission and Anticipated Discharge Date Admission Date: December 19, 2021 Subjective Complains of difficulty sputum expectoration, no shortness of breath, fever or chills. Tolerating oral intake well. pain controlled. Worked well with PT. Gets emotional at times. Hopes to go to rehab tomorrow. He would like to continue the farfan until he gets to the rehab. Physical Exam Physical Exam: General: Sitting in bed, not in distress, on room air HEENT: EOMI, ZACKARY, MMM Neck: Incision site clean/dry/intact with drain in place, Chest: Clear breath sounds bilaterally, no wheezes or crackles CVS: Regular rate and rhythm, normal heart sounds, no murmur Abdomen: Soft, non tender, not distended, normal bowel sounds Neuro: Awake, alert, oriented, conversing well. Strength intact. Extremities: No cyanosis, clubbing or edema Farfan with donavan urine Results & Data Results & Data ([facility]) Vital Signs (Past 12 Hours) Vital Signs Temp Pulse Resp BP Pulse Ox 12/24/21 10:17 36.5 C 79 17 131/83 95 12/24/21 09:40 82 12/24/21 09:22 120 H 160/100 H 95 12/24/21 07:53 70 16 93 12/24/21 07:44 36.7 C 57 L 20 138/81 93 12/24/21 07:00 68 16 93 12/24/21 03:00 56 L 16 93 Laboratory Results Short CBC 12/24/21 Range/Units 05:39 WBC 13.02 H (4.8-10.8) K/ul Hgb 13.1 L (14.0-18.0) g/dl Hct 36.2 L (40.1-51.0) % Plt Count 206 (130-400) K/uL BMP 12/24/21 05:39 Sodium 135 L Potassium 4.2 Chloride 103 Carbon Dioxide 26 BUN 30 H Creatinine 0.94 Glucose 141 H Calcium 8.8 Medications Administered Current Inpatient Medications Acetaminophen (Acetaminophen 500 Mg Tab) 1,000 mg PO Q8H PRN PRN Reason: MILD Pain Scale 1,2,3 & Pre PT Stop: 01/20/22 12:21 Al Hydrox/Mg Hydrox/Simethicone (Aluminum/Magnesium Susp 30 Ml Udc) 30 ml PO Q6H PRN PRN Reason: Dyspepsia Stop: 01/20/22 12:21 Albuterol (Albuterol 0.083% Nebu Soln 3 Ml Vial) 2.5 mg NEB Q4 PRN; Protocol PRN Reason: shortness of breath, wheezing Stop: 01/23/22 07:19 Last Admin: 12/24/21 07:51 Dose: 2.5 mg Documented by: Amitriptyline HCl (Amitriptyline Hcl 25 Mg Tab) 25 mg PO HS [facility] Stop: 01/18/22 20:59 Last Admin: 12/23/21 20:06 Dose: 25 mg Documented by: Amlodipine Besylate (Amlodipine Besylate 5 Mg Tab) 5 mg PO DAILY [facility] Stop: 01/19/22 08:59 Last Admin: 12/24/21 09:25 Dose: 5 mg Documented by: Atorvastatin Calcium (Atorvastatin 40 Mg Tab) 40 mg PO QAM [facility] Stop: 01/19/22 08:59 Last Admin: 12/24/21 09:28 Dose: 40 mg Documented by: Bisacodyl (Bisacodyl 10 Mg Supp) 10 mg ID DAILY PRN PRN Reason: Constipation Stop: 01/20/22 12:21 Brimonidine Tartrate (Brimonidine Tartrate 0.2% 5ml) 1 drops OPL BID [facility] Stop: 01/20/22 20:59 Last Admin: 12/24/21 09:33 Dose: 1 drops Documented by: Diphenhydramine HCl (Diphenhydramine Capsule 25 Mg Cap) 25 mg PO Q6H PRN PRN Reason: Allergic Rhinitis/Insomnia Stop: 01/20/22 12:21 Enalapril Maleate (Enalapril Maleate 10 Mg Tab) 40 mg PO DAILY [facility] Stop: 01/19/22 08:59 Last Admin: 12/24/21 09:24 Dose: 40 mg Documented by: Epinephrine (Racepinephrine 2.25% Nebu Soln 0.5 Ml Vial) 0.5 ml INH NOW PRN PRN Reason: If stridor present Famotidine (Famotidine 20 Mg Tab) 20 mg PO Q12H PRN PRN Reason: Dyspepsia Stop: 01/20/22 12:21 Gabapentin (Gabapentin 600 Mg Tab) 600 mg PO BID [facility] Stop: 01/21/22 20:59 Last Admin: 12/24/21 09:28 Dose: 600 mg Documented by: Gabapentin (Gabapentin 300 Mg Cap) 300 mg PO DAILY@1500 [facility] Stop: 01/21/22 14:59 Last Admin: 12/23/21 16:42 Dose: 300 mg Documented by: Guaifenesin (Guaifenesin 600 Mg Tabcr) 600 mg PO Q12 [facility] Stop: 01/23/22 08:59 Last Admin: 12/24/21 09:33 Dose: 600 mg Documented by: Hydromorphone HCl (Hydromorphone Inj 0.5 Mg/0.5 Ml Syr) 0.5 mg IV Q3H PRN PRN Reason: MODERATE Pain (Scale 4,5,6) & Pre PT Stop: 01/04/22 12:21 Last Admin: 12/22/21 11:10 Dose: 0.5 mg Documented by: Hydromorphone HCl (Hydromorphone Inj 1 Mg/Ml Syringe) 1 mg IV Q3H PRN PRN Reason: SEVERE Pain (Scale 7,8,9,10) Stop: 01/04/22 12:21 Hydroxyzine HCl (Hydroxyzine Hcl 25 Mg Tab) 25 mg PO Q8H PRN PRN Reason: Anxiety Stop: 01/20/22 12:21 Dexamethasone 8 mg/ Syringe 2 mls @ 1 mls/min IV NOW PRN PRN Reason: If stridor present Acetaminophen (Ofirmev) 1,000 mg in 100 mls @ 400 mls/hr IV Q8H PRN PRN Reason: Pain Rating 1-3 & Pre PT Stop: 12/24/21 12:21 Lorazepam 0.5 mg/ Syringe 0.5 mls @ 2 mls/min IV Q8H PRN PRN Reason: Sedation/Anxiety Stop: 01/20/22 12:21 Last Admin: 12/23/21 03:23 Dose: 2 mls/min Documented by: Promethazine HCl 12.5 mg/ (Sodium Chloride) 50.5 mls @ 202 mls/hr IV Q6H PRN PRN Reason: Nausea &/or Vomiting Stop: 01/20/22 12:21 Dexamethasone 8 mg/ Syringe 2 mls @ 1 mls/min IV DAILY [facility] Stop: 01/22/22 11:59 Last Admin: 12/24/21 09:28 Dose: 1 mls/min Documented by: Influenza Virus Vaccine Quadrival (Do Not Administer Flu Vaccine) 1 ea N/A PRN PRN PRN Reason: Notification Stop: 01/20/22 12:21 Latanoprost (Latanoprost 0.005% Op Soln 2.5 Ml Btl) 1 drops OP HS [facility] Stop: 01/20/22 20:59 Last Admin: 12/23/21 20:08 Dose: 1 drops Documented by: Levothyroxine Sodium ([facility]othyroxine Sodium 50 Mcg Tablet) [facility]: 01/19/22 06:29 Last Admin: 12/24/21 05:42 Dose: 50 mcg Documented by: Lorazepam (Lorazepam 0.5 Mg Tab) 0.5 mg PO Q8H PRN PRN Reason: Sedation/Anxiety Stop: 01/20/22 12:21 Last Admin: 12/23/21 16:41 Dose: 0.5 mg Documented by: Magnesium Hydroxide (Magnesium Hydroxide Susp 30 Ml Udc) 30 ml PO Q24H PRN PRN Reason: Constipation Stop: 01/20/22 12:21 Melatonin (Melatonin 3 Mg Tab) 9 mg PO HS [facility] Stop: 01/22/22 20:59 Last Admin: 12/23/21 20:07 Dose: 9 mg Documented by: Metoclopramide HCl (Metoclopramide Hcl Inj 5 Mg/Ml 2 Ml Vial) 10 mg IV Q6H PRN PRN Reason: Nausea &/or Vomiting Stop: 01/20/22 12:21 Naloxone HCl (Naloxone Hcl 0.4 Mg/1 Ml Vial/Carp) 0.1 mg IV Q5M PRN PRN Reason: Oversedation/Resp depression Stop: 01/20/22 12:21 Ondansetron HCl (Ondansetron Inj 2 Mg/Ml 2 Ml Vial) 4 mg IV Q6H PRN PRN Reason: Nausea &/or Vomiting Stop: 01/20/22 12:21 Last Admin: 12/23/21 23:39 Dose: 4 mg Documented by: Ondansetron HCl (Ondansetron 4 Mg Od Tab) 4 mg PO Q6H PRN PRN Reason: Nausea Stop: 01/20/22 12:21 Oxycodone HCl (Oxycodone Hcl Ir 5 Mg Tab (Immediate Release)) 5 - 10 mg PO Q4H PRN PRN Reason: Pain & Pre PT Stop: 01/04/22 12:21 Pneumococcal Polyvalent Vaccine (Do Not Administer Pneumococcal Vaccine) 1 ea N/A PRN PRN PRN Reason: Notification Stop: 01/20/22 12:21 Senna/Docusate Sodium (Docusate Sodium/Senna 50/8.6mg Tab) 2 tab PO HS [facility] Stop: 01/20/22 20:59 Last Admin: 12/23/21 20:06 Dose: 2 tab Documented by: Sodium Biphosphate/Sodium Phosphate (Sod Phosphate/Sod Biphosphate Enema 132 Ml Btl) 132 ml ID ONE PRN PRN Reason: Constipation Stop: 01/20/22 12:21
[2021-12-24] MEDS: GABAPENTIN 300 MG CAP PO SCH (14:33)
[2021-12-24] MEDS: MELATONIN 3 MG TAB PO SCH (20:35)
[2021-12-24] MEDS: DOCUSATE SODIUM/SENNA 50/8.6MG TAB PO SCH (20:35)
[2021-12-24] MEDS: AMITRIPTYLINE HCL 25 MG TAB PO SCH (20:35)
[2021-12-24] MEDS: LATANOPROST 0.005% OP SOLN 2.5 ML BTL OP SCH (20:36)
[2021-12-25] MEDS: LEVOTHYROXINE SODIUM 50 MCG TABLET PO SCH (06:08)
[2021-12-25 06:19] LABS: Creatinine Clr Calc Pharmacy 76.5 ml/min; Est GFR (African American) 94.5 ml/min; Est GFR (Non-African American) 81.5 ml/min
--- NOTE | 2021-12-25 08:50 | XRay Report ---
XR cervical spine 2 or 3V CLINICAL HISTORY: postop TECHNIQUE: AP, lateral, and open-jaw images of the cervical spine were obtained. COMPARISON: None available at the time of this dictation. FINDINGS: Anterior fixation hardware of C3-C5 is noted. No evidence of acute fracture is seen. Degenerative daniel nges are noted in the cervical spine. The alignment is anatomic Prevertebral soft tissues are within normal limits. IMPRESSION: No evidence for acute fracture or subluxation. ACT 112: Negative or not required by law. Electronically signed by: Alessandro Murillo M.D. 12/25/2021 8:48 AM
[2021-12-25] MEDS: dexAMETHasone 8 MG in SYRINGE 0 ML IV SCH (08:55)
[2021-12-25] MEDS: guaiFENesin 600 MG TABCR PO SCH ×2 (08:56→21:14)
[2021-12-25] MEDS: GABAPENTIN 600 MG TAB PO SCH ×2 (08:56→21:14)
[2021-12-25] MEDS: ATORVASTATIN 40 MG TAB PO SCH (08:57)
[2021-12-25] MEDS: ENALAPRIL MALEATE 10 MG TAB PO SCH (08:58)
[2021-12-25] MEDS: amLODIPine BESYLATE 5 MG TAB PO SCH (08:58)
[2021-12-25] MEDS: BRIMONIDINE TARTRATE 0.2% 5ML OPL SCH ×2 (08:59→21:14)
--- NOTE | 2021-12-25 11:01 | Hospitalist Progress Note ---
Date of Service December 25, 2021 Assessment & Plan (1) Stenosis of cervical spine with myelopathy: (2) Urinary retention: Plan: 81year old male who presented to the ED 12/19 with acute onset bilateral arm and leg weakness, symptoms started around 8 am on 12/19. Stroke work up was negative but showed severe canal and neural foraminal stenosis, most prominent at C4-C5 with spinal cord edema concerning for cord ischemia. He was started on decadron with improvement. He was seen by orthopedic surgery and recommended urgent [facility]. He is from [facility] but was here on vacation. Cervical spine MRI 12/19- Multilevel degenerative changes with severe canal and neural foraminal stenosis, most prominent at C4-C5 with spinal cord edema. Findings are concerning for cord ischemia. 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 CT head and MRI brain with no acute abnormality CTA head/neck 1. No acute intracranial abnormality. 2. 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 No evidence of aneurysm rupture. 3. Otherwise unremarkable CTA of the head and neck. 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 Urinary retention and now on farfan. - S/p surgery by Dr Tiwari POD#1 ( #1 anterior cervical corpectomy with bilateral foraminotomies C4. #2 anterior cervical arthrodesis C3-C5. #3 placement of 25 mm peek cage C3-C5. #4 placement of locally harvested morselized autograft combined with I factor interbody cage. #5 application of 5 complete and screws from C3-C5.) - Further management per orthopedic surgery- SAE drain has been removed. Acute urinary retention- from above- on farfan- he would like to continue farfan until he gets to the rehab. HTN: continue vasotec Hypothyroidism- on synthroid Insomnia and Chronic Lower back pain s/p back surgery: Continue Amitriptyline and gabapentin. continue melatonin. leucocytosis- likely from steroids. improving. Glaucoma- on eye drops DVT prophylaxis- SCDs. Chemoprophylaxis when okay per ortho Dispo: Stable for discharge but no bed available in the [place] rehab today. Discharge tomorrow. Needs transportation set up. CM following. Updated daughter at bedside Admission and Anticipated Discharge Date Admission Date: December 19, 2021 Subjective No new issues. Feels ready to go to rehab. Pain controlled. Tolerating oral intake well. No fever, chills, chest pain, shortness of breath, nausea, vomiting. Physical Exam Physical Exam: General: Sitting in chair eating breakfast, not in distress, on room air HEENT: EOMI, ZACKARY, MMM Neck: Incision site clean/dry/intact- Drain has been removed Chest: Clear breath sounds bilaterally, no wheezes or crackles CVS: Regular rate and rhythm, normal heart sounds, no murmur Abdomen: Soft, non tender, not distended, normal bowel sounds Neuro: Awake, alert, oriented, conversing well. Strength intact. Extremities: No cyanosis, clubbing or edema Farfan with donavan urine Results & Data Results & Data ([facility]) Vital Signs (Past 12 Hours) Vital Signs Temp Pulse Pulse Resp BP BP Pulse Ox 12/25/21 08:55 117 H 137/88 95 12/25/21 07:44 54 L 18 93 12/25/21 07:11 36.3 C L 56 L 16 147/81 H 97 12/25/21 03:03 50 L 16 94 12/24/21 23:10 67 16 94 Laboratory Results [facility] 12/25/21 05:35 Creatinine 0.87 Medications Administered Current Inpatient Medications Acetaminophen (Acetaminophen 500 Mg Tab) 1,000 mg PO Q8H PRN PRN Reason: MILD Pain Scale 1,2,3 & Pre PT Stop: 01/20/22 12:21 Al Hydrox/Mg Hydrox/Simethicone (Aluminum/Magnesium Susp 30 Ml Udc) 30 ml PO Q6H PRN PRN Reason: Dyspepsia Stop: 01/20/22 12:21 Albuterol (Albuterol 0.083% Nebu Soln 3 Ml Vial) 2.5 mg NEB Q4 PRN; Protocol PRN Reason: shortness of breath, wheezing Stop: 01/23/22 07:19 Last Admin: 12/24/21 07:51 Dose: 2.5 mg Documented by: Amitriptyline HCl (Amitriptyline Hcl 25 Mg Tab) 25 mg PO HS BRADY Stop: 01/18/22 20:59 Last Admin: 12/24/21 20:35 Dose: 25 mg Documented by: Amlodipine Besylate (Amlodipine Besylate 5 Mg Tab) 5 mg PO DAILY [facility] Stop: 01/19/22 08:59 Last Admin: 12/25/21 08:58 Dose: 5 mg Documented by: Atorvastatin Calcium (Atorvastatin 40 Mg Tab) 40 mg PO QAM [facility] Stop: 01/19/22 08:59 Last Admin: 12/25/21 08:57 Dose: 40 mg Documented by: Bisacodyl (Bisacodyl 10 Mg Supp) 10 mg SC DAILY PRN PRN Reason: Constipation Stop: 01/20/22 12:21 Brimonidine Tartrate (Brimonidine Tartrate 0.2% 5ml) 1 drops OPL BID [facility] Stop: 01/20/22 20:59 Last Admin: 12/25/21 08:59 Dose: 1 drops Documented by: Diphenhydramine HCl (Diphenhydramine Capsule 25 Mg Cap) 25 mg PO Q6H PRN PRN Reason: Allergic Rhinitis/Insomnia Stop: 01/20/22 12:21 Enalapril Maleate (Enalapril Maleate 10 Mg Tab) 40 mg PO DAILY [facility] Stop: 01/19/22 08:59 Last Admin: 12/25/21 08:58 Dose: 40 mg Documented by: Epinephrine (Racepinephrine 2.25% Nebu Soln 0.5 Ml Vial) 0.5 ml INH NOW PRN PRN Reason: If stridor present Famotidine (Famotidine 20 Mg Tab) 20 mg PO Q12H PRN PRN Reason: Dyspepsia Stop: 01/20/22 12:21 Gabapentin (Gabapentin 600 Mg Tab) 600 mg PO BID [facility] Stop: 01/21/22 20:59 Last Admin: 12/25/21 08:56 Dose: 600 mg Documented by: Gabapentin (Gabapentin 300 Mg Cap) 300 mg PO DAILY@1500 [facility] Stop: 01/21/22 14:59 Last Admin: 12/24/21 14:33 Dose: 300 mg Documented by: Guaifenesin (Guaifenesin 600 Mg Tabcr) 600 mg PO Q12 [facility] Stop: 01/23/22 08:59 Last Admin: 12/25/21 08:56 Dose: 600 mg Documented by: Hydromorphone HCl (Hydromorphone Inj 0.5 Mg/0.5 Ml Syr) 0.5 mg IV Q3H PRN PRN Reason: MODERATE Pain (Scale 4,5,6) & Pre PT Stop: 01/04/22 12:21 Last Admin: 12/22/21 11:10 Dose: 0.5 mg Documented by: Hydromorphone HCl (Hydromorphone Inj 1 Mg/Ml Syringe) 1 mg IV Q3H PRN PRN Reason: SEVERE Pain (Scale 7,8,9,10) Stop: 01/04/22 12:21 Hydroxyzine HCl (Hydroxyzine Hcl 25 Mg Tab) 25 mg PO Q8H PRN PRN Reason: Anxiety Stop: 01/20/22 12:21 Dexamethasone 8 mg/ Syringe 2 mls @ 1 mls/min IV NOW PRN PRN Reason: If stridor present Lorazepam 0.5 mg/ Syringe 0.5 mls @ 2 mls/min IV Q8H PRN PRN Reason: Sedation/Anxiety Stop: 01/20/22 12:21 Last Admin: 12/23/21 03:23 Dose: 2 mls/min Documented by: Promethazine HCl 12.5 mg/ (Sodium Chloride) 50.5 mls @ 202 mls/hr IV Q6H PRN PRN Reason: Nausea &/or Vomiting Stop: 01/20/22 12:21 Dexamethasone 8 mg/ Syringe 2 mls @ 1 mls/min IV DAILY [facility] Stop: 01/22/22 11:59 Last Admin: 12/25/21 08:55 Dose: 1 mls/min Documented by: Influenza Virus Vaccine Quadrival (Do Not Administer Flu Vaccine) 1 ea N/A PRN PRN PRN Reason: Notification Stop: 01/20/22 12:21 Latanoprost (Latanoprost 0.005% Op Soln 2.5 Ml Btl) 1 drops OP HS BRADY Stop: 01/20/22 20:59 Last Admin: 12/24/21 20:36 Dose: 1 drops Documented by: Levothyroxine Sodium (Levothyroxine Sodium 50 Mcg Tablet) 50 mcg PO DAILYBB [facility] Stop: 01/19/22 06:29 Last Admin: 12/25/21 06:08 Dose: 50 mcg Documented by: Lorazepam (Lorazepam 0.5 Mg Tab) 0.5 mg PO Q8H PRN PRN Reason: Sedation/Anxiety Stop: 01/20/22 12:21 Last Admin: 12/23/21 16:41 Dose: 0.5 mg Documented by: Magnesium Hydroxide (Magnesium Hydroxide Susp 30 Ml Udc) 30 ml PO Q24H PRN PRN Reason: Constipation Stop: 01/20/22 12:21 Melatonin (Melatonin 3 Mg Tab) 9 mg PO HS [facility] Stop: 01/22/22 20:59 Last Admin: 12/24/21 20:35 Dose: 9 mg Documented by: Metoclopramide HCl (Metoclopramide Hcl Inj 5 Mg/Ml 2 Ml Vial) 10 mg IV Q6H PRN PRN Reason: Nausea &/or Vomiting Stop: 01/20/22 12:21 Naloxone HCl (Naloxone Hcl 0.4 Mg/1 Ml Vial/Carp) 0.1 mg IV Q5M PRN PRN Reason: Oversedation/Resp depression Stop: 01/20/22 12:21 Ondansetron HCl (Ondansetron Inj 2 Mg/Ml 2 Ml Vial) 4 mg IV Q6H PRN PRN Reason: Nausea &/or Vomiting Stop: 01/20/22 12:21 Last Admin: 12/23/21 23:39 Dose: 4 mg Documented by: Ondansetron HCl (Ondansetron 4 Mg Od Tab) 4 mg PO Q6H PRN PRN Reason: Nausea Stop: 01/20/22 12:21 Oxycodone HCl (Oxycodone Hcl Ir 5 Mg Tab (Immediate Release)) 5 - 10 mg PO Q4H PRN PRN Reason: Pain & Pre PT Stop: 01/04/22 12:21 Pneumococcal Polyvalent Vaccine (Do Not Administer Pneumococcal Vaccine) 1 ea N/A PRN PRN PRN Reason: Notification Stop: 01/20/22 12:21 Senna/Docusate Sodium (Docusate Sodium/Senna 50/8.6mg Tab) 2 tab PO [facility] Stop: 01/20/22 20:59 Last Admin: 12/24/21 20:35 Dose: 2 tab Documented by: Sodium Biphosphate/Sodium Phosphate (Sod Phosphate/Sod Biphosphate Enema 132 Ml Btl) 132 ml SC ONE PRN PRN Reason: Constipation Stop: 01/20/22 12:21
[2021-12-25] MEDS: GABAPENTIN 300 MG CAP PO SCH (15:35)
[2021-12-25] MEDS: DOCUSATE SODIUM/SENNA 50/8.6MG TAB PO SCH (21:12)
[2021-12-25] MEDS: MELATONIN 3 MG TAB PO SCH (21:14)
[2021-12-25] MEDS: AMITRIPTYLINE HCL 25 MG TAB PO SCH (21:14)
[2021-12-25] MEDS: LATANOPROST 0.005% OP SOLN 2.5 ML BTL OP SCH (21:14)
[2021-12-26] MEDS: LEVOTHYROXINE SODIUM 50 MCG TABLET PO SCH (06:37)
[2021-12-26] MEDS: guaiFENesin 600 MG TABCR PO SCH (07:45)
[2021-12-26] MEDS: dexAMETHasone 8 MG in SYRINGE 0 ML IV SCH (07:45)
[2021-12-26] MEDS: ENALAPRIL MALEATE 10 MG TAB PO SCH (07:46)
[2021-12-26] MEDS: amLODIPine BESYLATE 5 MG TAB PO SCH (07:46)
[2021-12-26] MEDS: GABAPENTIN 600 MG TAB PO SCH (07:46)
[2021-12-26] MEDS: ATORVASTATIN 40 MG TAB PO SCH (07:46)
[2021-12-26] MEDS: BRIMONIDINE TARTRATE 0.2% 5ML OPL SCH (07:47)
--- NOTE | 2021-12-26 08:49 | Discharge Summary ---
Date of Service December 26, 2021 Admission HPI Per Admitting Provider Pt is a 81 y/o M with hx of HTN, Chronic R foot drop, Insomnia, L DDD s/p surgery, Chronic lower back pain came into the ER with acute onset of b/l arm and leg weakness with possible b/l facial droop (per symptoms started around 8 am today). Per and pt: pt was completely asymptomatic yesterday. Denied any recent URI symptoms, tick bite, rash, or GI symptoms. At bedside: per pt symptoms are improving. He is still having b/l extremity weakness. Denied any acute CP, SOB, RAMIREZ or Blurry vision. Denied any prior hx of CVA, HI, PAD or seizure. Pt and lives in [place], [place] Admission Exam Per Admitting Provider General:.NAD, well developed, well nourished, average body habitus HEENT:.Normocephalic and atraumatic, Normal Conjunctiva, EOMI, Sclera is non- icteric Lungs:.No signs of respiratory distress, CTA, no wheezing or crackles Heart:.Normal S1, S2, no murmur Abdominal:.ND, Soft, NT Neuro: CN II-XII intact, PERRLA, EOMI, no facial droop, pt had b/l UE and LE weakness: symmetrical, and only able to move the UE and LE against gravity slightly MSK:.No leg edema Psych:.AAOx3, normal affect Principal Diagnosis Cervical spinal stenosis with myeloradiculopathy Discharge Exam General: Sitting in bed eating breakfast, not in distress, on room air HEENT: EOMI, ZACKARY, MMM Neck: Incision site clean/dry/intact- clean dressing overlying. Chest: Clear breath sounds bilaterally, no wheezes or crackles CVS: Regular rate and rhythm, normal heart sounds, no murmur Abdomen: Soft, non tender, not distended, normal bowel sounds Neuro: Awake, alert, oriented, conversing well. Strength intact. Extremities: No cyanosis, clubbing or edema. Rt foot drop noted. Farfan with yellow urine Discharge Data Allergies Allergy/AdvReac Type Severity Reaction Status Date / Time tramadol AdvReac Confusion Verified 12/26/21 08:05 Consultations 12/19/21 10:35 ED Decision to Admit Stat 12/19/21 15:19 Consult Neurology Routine 12/19/21 15:56 Consult Orthopedic Surgery Stat Procedures Performed Operation Date: 12/21/21 08:15 Actual Procedures p C4 Anterior Cervical Corpectomy - Maxim Tiwari, Ordered Studies 12/19/21 09:15 CT angio head w con Stat CT angio neck with con Stat CT head/brain wo con Stat 12/19/21 10:22 MR brain wo con Stat MR cervical spine wo con Stat 12/19/21 18:40 US venous doppler UE LT Urgent 12/21/21 08:15 FL cervical 2-3V Routine Hospital Course (1) Stenosis of cervical spine with myelopathy: 81year old male who presented to the ED 12/19 with acute onset bilateral arm and leg weakness, symptoms started around 8 am on 12/19. Stroke work up was negative but showed severe canal and neural foraminal stenosis, most prominent at C4-C5 with spinal cord edema concerning for cord ischemia. He was started on decadron with improvement. He was seen by orthopedic surgery and recommended urgent [facility]. He is from [facility] but was here on vacation. He was managed for the following: Cervical spine MRI 12/19-Multilevel degenerative changes with severe canal and neural foraminal stenosis, most prominent at C4-C5 with spinal cord edema. Findings are concerning for cord ischemia. 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 CT head and MRI brain with no acute abnormality CTA head/neck 1. No acute intracranial abnormality. 2. 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 No evidence of aneurysm rupture. 3. Otherwise unremarkable CTA of the head and neck. 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 Urinary retention and now on farfan. - S/p surgery by Dr Tiwari on 12/21/21 (#1 anterior cervical corpectomy with bilateral foraminotomies C4. #2 anterior cervical arthrodesis C3-C5. #3 placement of 25 mm peek cage C3-C5. #4 placement of locally harvested mo rselized autograft combined with I factor interbody cage. #5 application of 5 complete and screws from C3-C5.). DVT Px per Ortho. - Further management per orthopedic surgery- SAE drain has been removed. Ant neck w/ clean dressing, good track grinder strength and power in extremities. Acute urinary retention-from above- on farfan- he would like to continue farfan until he gets to the rehab. HTN:continue vasotec Hypothyroidism- on synthroid Insomnia and Chronic Lower back pain s/p back surgery: Continue Amitriptyline and gabapentin. continue melatonin. leucocytosis- likely from steroids. improving. Glaucoma- on eye drops Being discharged to [facility]. Total Time Total Time Spent Total Time Spent (In Minutes): 35 Discharge Plan Discharge Items Patient Disposition: Transfer Inpatient Rehab Fac Reason For Visit: WEAKNESS, URINARY RETENTION Discharge Diagnosis: Cervical spinal stenosis with myeloradiculopathy Activity: As commented below Non-emergency contact: Primary Care Provider Call non-emergency contact if: you have any medication questions Follow-up/Referrals: PCP,NO [Primary Care Provider] - Diet: Regular Diet Texture: Easy to Chew Diet Comment: currently on full liq diet, advance as tolerated Addtl Attending Provider Instructions: ACTIVITY RECOMMENDATIONS: SELF CARE INSTRUCTIONS AFTER CERVICAL FUSIONS 1. No smoking. Smoking drastically decreases the chance of a solid fusion. 2. No bending, lifting more than 5 pounds, or twisting (roll like a log when turning in bed). 3. You may shower 3 days after surgery. Thoroughly dry wound. Do not soak in the tub. 4. Cervical collar: Must be worn at all times including sleeping. You may remove the brace only to bath, eat and if you are sitting in a recliner. 5. Please walk as much as you can for exercise. Gradually increase the distance that you walk as your endurance increases. SPECIAL CARE INSTRUCTIONS: VERY IMPORTANT TO READ AND REVIEW A. Do not take any anti-inflammatory medications (i.e. Indocin, Advil, Aspirin, Naprosyn, Aleve, Motrin, etc.) as these may inhibit the chance of a solid fusion. Tylenol is okay to take. B. Your surgical incision has been closed with a cosmetic suture under the skin that will dissolve in about 6 weeks. In 14 days, you can use a pair of clean scissors and cut the suture that is left outside of the skin at the ends of your incision. C. Complications are uncommon, but please contact us if you have any signs or symptoms of: 1. wound infection (fever higher than 102.5 degrees F, redness, separation of wound, drainage, or increasing pain from the incision) 2. blood clots in legs (pain, swelling, redness and warmth in legs) 3. urinary tract infection (fever higher than 102.5 degrees, burning upon urination or increased frequency of urination) 4. nerve problems (inability to walk on your toes or heels, numbness, loss of bowel or bladder control) 5. any other symptoms that concern you. D. Please call the office at if you have any concerns or questions about your operation or recovery. MANAGING PAIN AFTER SPINAL SURGERY 1. Narcotic medication is intended for short-term use and will be provided for surgical pain. Surgical pain usually lasts for a period of 4-6 weeks. Narcotic medication includes Percocet, Vicodin, Darvocet, Tylenol #3 or Lortab. 2. Longer-term pain is more appropriately treated with non-narcotic medication such as Tylenol ES. 3. Muscle spasm is not appropriately treated with narcotics. Muscle relaxers such as Soma, Flexeril or Skelaxin can be used along with Tylenol ES. 4. Remember that we all live with some "aches and pains". This is not unusual or uncommon after an injury or as we get older. 5. We will provide appropriate medication within the normal guidelines of their prescribed use. We will also be very cautious and aware of potential abuse and extended duration of patients' medication needs. 6. Please allow 2-3 days to process refills. Prescriptions will not be mailed but must be picked up at the office. FOLLOW UP VISIT: Keep your scheduled follow-up appointment. Any questions, please call the office at . Addtl Tool Supervisor Provider Instructions: No aspirin or NSAIDs until the surgical wound heals. F/u w/ PCP in a week time. Further discussion on resuming your aspirin w/ your orthospine or pcp as OP. f/u w/ orthospine as OP. Pending Studies at Discharge: No Stand-Alone Forms: My [facility] Skilled Items Patient informed of condition?: Yes DNR: No Discharge Level of Care: Acute rehab Communicable Disease: No Discharge Prognosis: Improving Lines: None Urinary Catheter: Yes Medications and DC Order Prescriptions: New oxycodone 5 mg tablet 5 mg PO Q6H PRN (Reason: pain, severe) Qty: 20 RF: 0 Continued Amitriptyline Hcl (Elavil Unknown Dose) tablet Qty: 0 RF: 0 Amlodipine (Norvasc Unknown Dose) tablet Qty: 0 RF: 0 Atorvastatin (Lipitor Unknown Dose) tablet Qty: 0 RF: 0 amitriptyline 25 mg tablet 25 mg PO HS RF: 0 levothyroxine 50 mcg tablet 50 mcg PO DAILY RF: 0 gabapentin 300 mg capsule 300 mg PO DIRECTED RF: 0 amlodipine-benazepril 5-40 mg capsule 1 cap PO DAILY RF: 0 Changed Aspirin Enteric Coated (Ecotrin Or Generic *) 81 MG ENTERIC COATED TAB 81 mg PO UD Qty: 0 RF: 0 Discontinued aspirin 81 mg Capsule 81 mg PO DAILY RF: 0 Discharge Orders: Discharge Order (Routine); Ordered 12/26/21 Ordered By: Carly Dunlap Admission Data Admit Date/Time: 12/19/21 12:38 Attending Provider: Carly Dunlap Admit Provider: Ingrid Huang Primary Care Provider: PCP,NO Other Providers: Ingrid Huang ; Lilliana Kulkarni ; Maxim Tiwari
--- NOTE | 2021-12-26 09:58 | Orthopedic Progress Note ---
Date of Service December 26, 2021 Assessment & Plan (1) Stenosis of cervical spine with myelopathy: Plan: At this time we will continue with restrictions and physical therapy. We will have him follow-up to our office when he is able to return to [facility]. Admission and Anticipated Discharge Date Admission Date: December 19, 2021 Subjective Patient's pain is well controlled. Arm symptoms and leg symptoms markedly improved. He is tolerating physical therapy. He swallowing without difficulty. Physical Exam Physical Exam: On exam he has good strength testing upper extremities. Sensory is symmetric and intact. Results & Data ([facility]) Vital Signs (Past 12 Hours) Vital Signs Temp Pulse Resp BP BP Pulse Ox 12/26/21 07:41 36.5 C 63 16 171/84 H 93 12/26/21 07:12 63 16 97 12/26/21 02:31 58 L 16 94 12/25/21 23:14 65 18 95 12/25/21 22:31 36.8 C 64 18 149/88 H 96
== END 2021-12-26 10:12 | DRG 29 ==
LOC: ED 09:25 → MERGE 09:25 → 2N 12:38 → SUATTDRO 12:38 → 2N 14:35 → 3E 12-21 12:28